=== PATIENT | female | born 1955 | race African-American/Black ===

== ENCOUNTER 2017-09-22 09:53 | Inpatient (IN) | payer OTHER ==
[2017-09-22 10:23] LABS: #Lymphocytes 0.8 thou/uL (1.20-3.40); #Monocytes 0.4 thou/uL (0.11-0.59); #Neutrophils 4.5 thou/uL (1.40-6.50); %Basophils 0.4 % (0.0-1.0); %Eosinophils 0.5 % (0.0-10.0); %Lymphocytes 14.4 % (21.0-51.0); %Monocytes 6.5 % (0.0-10.0); %Neutrophils 78.2 % (42.0-75.0); Hemoglobin 15.1 g/dL (12.0-16.0); Mean Corpuscular HGB CONC 31.7 g/dL (32.0-36.0); Mean Corpuscular Hemoglobin 28.7 pg (27.0-31.0); Mean Corpuscular Volume 90.3 fl (81.0-99.0); Mean Platelet Volume 7.5 fL (7.4-10.4); Platelet Count 237 thou/uL (130-400); RBC Distribution Width 13.3 % (11.5-14.5); Red Blood Cell (RBC) Count 5.26 mill/uL (4.20-5.40); White Blood Cell (WBC) Count 5.7 thou/uL (4.8-10.8)
[2017-09-22 10:35] LABS: Prothrombin Time 12.9 SEC (12.0-14.7)
[2017-09-22 10:39] LABS: PTT 29.3 SEC (22.9-36.1)
[2017-09-22 10:49] LABS: ALT (SGPT) 10 U/L (8-55); AST (SGOT) 13 U/L (5-34); Albumin 3.8 g/dL (3.4-4.8); Alkaline Phosphatase 104 U/L (40-150); Anion Gap 13 mmol/L (10-20); BUN (Urea Nitrogen) 6 mg/dL (9.8-20.1); Bilirubin, Total 0.4 mg/dL (0.2-1.2); CK (CPK) 116 U/L (29-168); Calc. Creatinine Clearance 0 mL/min (70-130); Calcium 9.4 mg/dL (7.8-10.44); Carbon Dioxide 29 mmol/L (23-31); Chloride 103 mmol/L (98-107); Estimated GFR-MDRD Greater than 90; Globulin 3.6 g/dL (2.4-3.5); Glucose 142 mg/dL (80-115); Potassium 3.4 mmol/L (3.5-5.1); Protein, Total 7.4 g/dL (6.0-8.3); Sodium 142 mmol/L (136-145)
[2017-09-22 11:15] LABS: CKMB 3.7 ng/mL (0-6.6)
[2017-09-22] MEDS ORDERED: Nitroglycerin 0.4 MG TAB (25 Tab Bottle) ONE (11:30)
--- NOTE | 2017-09-22 11:34 | RAD ---
PORTABLE CHEST: HISTORY: COPD. Shortness of breath since yesterday. COMPARISON: A 11/04/10 and a 02/12/16 exam. FINDINGS: Heart size is enlarged. Hilar regions are prominent which appears to be on the basis of enlarged pul monary arteries similar in appearance to the previous exam. No definitive infiltrative process. IMPRESSION: Cardiomegaly with prominent hilar regions which I believe are related to prominent pulmonary arteries suggesting an element of pulmonary artery hypertension. POS: [facility]
[2017-09-22] MEDS ORDERED: Enoxaparin Sodium 100 MG/ML SYRINGE ONE (12:05)
[2017-09-22] MEDS ORDERED: Acetaminophen 325 MG TAB PO PRN (13:09)
[2017-09-22 13:25] VITALS: BMI 38.0
[2017-09-22] MEDS ORDERED: Aspirin 325 MG TAB PO SCH (14:00)
[2017-09-22 15:02] LABS: Troponin I 12.991 ng/mL (< 0.028)
[2017-09-22] MEDS ORDERED: Morphine 4 MG/ML VIAL SLOW IVP PRN (15:41)
[2017-09-22] MEDS ORDERED: hydrALAZINE 20 MG/ML VIAL SLOW IVP PRN (15:41)
[2017-09-22] MEDS ORDERED: Ondansetron ODT 4 MG TAB PO PRN (15:41)
[2017-09-22] MEDS ORDERED: cloNIDine 0.1 MG TAB PO PRN (15:41)
[2017-09-22] MEDS ORDERED: Ondansetron HCl/PF 4 MG/2 ML Vial IVP PRN (15:41)
[2017-09-22] MEDS ORDERED: Nitroglycerin 0.4 MG TAB (25 Tab Bottle) SL PRN (15:41)
[2017-09-22] MEDS ORDERED: Furosemide 20 MG/2 ML VIAL SLOW IVP SCH (16:30)
[2017-09-22] MEDS: Acetaminophen 500 MG TAB PO PRN (16:34)
[2017-09-22 17:44] LABS: Troponin I 17.167 ng/mL (< 0.028)
--- NOTE | 2017-09-22 17:53 | HP ---
DATE OF ADMISSION: 09/22/2017 PRIMARY CARE PROVIDER: Jadyn Mcgee D.O. PRIMARY PRESCHOOL ASSISTANT PRINCIPAL: Grace Bailey M.D. CHIEF COMPLAINT: Chest pain and shortness of breath. HISTORY OF PRESENT ILLNESS: This is a 62-year-old -Maltese female who presents to [facility] complaining of increasing shortness of breath, orthopnea as well as chest luan n and cramping, which woke her from sleep approximately 6:00 a.m. on 09/22/2017. The patient had not iced increasing shortness of breath in the context of known chronic obstructive pulmonary disease on chronic oxygen supplementation, mainly nocturnally. The patient had noticed increased work of breath ing in the last 24 hours, worsening in the last 12 hours. The patient describes central anterior lna st wall cramping and pressure, at which point she sat up out of bed, leaning forward to catch her cheli ath. The patient states she has never had a pain like this in the past and denies any prior history of myocardial infarction. The patient does admit she has a history of COPD and congestive heart fail ure, but denies any change to her chronic medication regimen. The patient states she stopped taking aspirin 81 mg daily, approximately 1 year ago after she ran out of the medication. The patient denie s any fever, chills, sick contact exposure history or recent travel. The patient denies any unilater al lower extremity swelling. The patient does not admit to some muscle cramping, but attributes this to her chronic Lasix therapy. In the emergency room, the patient underwent general evaluation inclu ding screening metabolic survey showing mildly elevated troponin I of 0.030. The patient received ni troglycerin sublingually as well as 324 mg of aspirin. The patient also received Lovenox 1 mg/kg sub cutaneously x1 dose. Chest imaging was performed showing pulmonary vascular prominence. The patient was transferred to the observation unit for further evaluation. PAST MEDICAL HISTORY: 1. Chronic hypoxemic respiratory failure on chronic oxygen supplementation by nasal cannula. 2. Hypertension. 3. Hypothyroidism. 4. Hyperlipidemia. 5. History of CVA with residual left-sided weakness. 6. Questionable history of congestive heart failure. PAST SURGICAL HISTORY: 1. Status post hysterectomy. 2. Status post thyroidectomy. CURRENT MEDICATIONS: 1. ProAir HFA 1 puff inhaled b.i.d. 2. Allopurinol 200 mg p.o. daily. 3. Lipitor 20 mg p.o. at bedtime. 4. Wellbutrin SR 150 mg p.o. b.i.d. 5. Lasix 40 mg p.o. b.i.d. 6. Bevespi Aerosphere inhaler 1 puff inhaled b.i.d. 7. Hydralazine 10 mg p.o. t.i.d. 8. Cetirizine 5 mg p.o. at bedtime. 9. Levothyroxine 100 mcg one tab p.o. daily. 10. Lisinopril 40 mg p.o. daily. 11. Bystolic 10 mg p.o. daily. 12. Nifedipine ER 60 mg p.o. daily. 13. Potassium chloride 20 mEq p.o. daily. ALLERGIES: No known drug allergies. FAMILY HISTORY: Mother at the age of 56 after complications of breast cancer and diabetes. Fat her in his 60s secondary to complications of pancreatic cancer. SOCIAL HISTORY: The patient resides in [place], [place]. Accompanied by her niece. Has one daughter living in the [place], [place] area. Smokes up to a pack of cigarettes daily. No alcohol or illicit dr ug use. Ambulates with the use of a rolling walker. REVIEW OF SYSTEMS: The following complete review of systems was negative, unless otherwise mentioned in the HPI or below: Constitutional: Weight loss or gain, ability to conduct usual activities. Sk in: Rash, itching. Eyes: Double vision, pain. ENT/Mouth: Nose bleeding, neck stiffness, pain, te nderness. Cardiovascular: Palpitations, dyspnea on exertion, orthopnea. Respiratory: Shortness of breath, wheezing, cough, hemoptysis, fever or night sweats. Gastrointestinal: Poor appetite, abdom inal pain, heartburn, nausea, vomiting, constipation, or diarrhea. Genitourinary: Urgency, frequenc y, dysuria, nocturia. Musculoskeletal: Pain, swelling. Neurologic/Psychiatric: Anxiety, depressio n. Allergy/Immunologic: Skin rash, bleeding tendency. Otherwise negative except as stated per HPI. PHYSICAL EXAMINATION: VITAL SIGNS: On admission, blood pressure 188/91, pulse 82, respiratory rate 22, temperature 98 degr ees Fahrenheit, O2 saturation 98% on 3 liters per minute by nasal cannula. GENERAL APPEARANCE: This is a 62-year-old -Maltese female, alert and oriented x3, pleasant, responsive, in no acute distress. HEENT: Pupils are equal, round, and reactive to light and accommodation. Extraocular muscles are in tact. No scleral icterus, no conjunctival injection. Nares patent. OP is clear. Teeth in fair rep air. NECK: Supple, no cervical adenopathy, no thyromegaly, no carotid bruits, no JVD appreciated. Cervic al spine with full active and passive range of motion. No meningeal signs appreciated. CHEST: Diminished breath sounds in the bases bilaterally with scattered bibasilar crackles. CARDIOVASCULAR: S1, S2 with distant heart sounds. No murmur, rub or gallop appreciated. No reprodu cible chest tenderness. ABDOMEN: Obese, soft, nontender, nondistended. Bowel sounds are positive in all four quadrants. Th ere is no hepatosplenomegaly, no abdominal bruits, no rebound or guarding appreciated. EXTREMITIES: Warm and dry with fair turgor. No clubbing, cyanosis or asymmetric edema appreciated. Pulses palpable distally at the dorsalis pedis, posterior tibial, and popliteal arteries bilaterally . Capillary refill less than 2 seconds. NEUROLOGIC: Cranial nerves II-XII are grossly intact. No focal or lateralizing signs appreciated. The patient not observed ambulatory during this exam. PERTINENT LABORATORY AND X-RAY FINDINGS: Sodium 142, potassium 3.4, chloride 103, CO2 of 29, BUN 6, creatinine 0.69, estimated GFR greater than 90, glucose 142, calcium 9.4. LFTs within normal limits. Troponin I ranged between 0.030-12.99. BNP 640, previously noted 216 on 12/27/2012. CBC showed a white blood cell count of 5.7, hemoglobin 15, hematocrit 48, platelet count 237 with 78% neutrophils. PT 12.9, INR 1.0, PTT 29.3. Portable chest x-ray dated 09/22/2017 showed cardiomegaly with bilater al hilar prominence. EKG dated 09/22/2017 by my interpretation shows sinus mechanism with heart rate s in the 70s. Attenuated R waves noted in the precordial leads. Left bundle branch block pattern no nicole. No change when compared with prior EKG in 2012. No acute ST-T wave changes appreciated. ASSESSMENT AND PLAN: 1. Non-ST elevation myocardial infarction. The patient will be admitted to the telemetry unit. We will continue aspirin 325 mg daily. Consult Cardiology Service for left heart catheterization and ev aluation of coronary anatomy. Continue Lovenox 1 mg/kg subcutaneously q.12 hours. Continue Lipitor 40 mg p.o. at bedtime. Nitroglycerin p.r.n. Check fasting lipid profile in the a.m. Check 2D trans thoracic echocardiogram in the a.m. 2. Chronic hypoxemic respiratory failure. We will continue oxygen supplementation at 3 liters per m inute by nasal cannula. Continue albuterol sulfate 1 puff inhaled b.i.d. DuoNebs p.r.n. 3. Congestive heart failure. Suspect secondarily to #1. Check 2D transthoracic echocardiogram for ejection fraction and evaluation. Lasix 20 mg IV x1 dose now. Monitor daily weights and I's and O's . 4. Hypertension. Resume home antihypertensive regimen and monitor clinical response. 5. Hypothyroidism. Continue levothyroxine 100 mcg p.o. daily. 6. Prophylaxis. Sequential compression devices while in bed. Pepcid 20 mg p.o. b.i.d. PT evaluati on for functional assessment. 7. Code status is FULL. Surrogate medical decision maker is patient's daughter.
[2017-09-22] MEDS ORDERED: Clopidogrel Bisulfate 300 MG TAB PO SCH (18:15)
[2017-09-22] MEDS ORDERED: Potassium Chloride 20 MEQ TAB PO SCH (18:30)
[2017-09-22] MEDS ORDERED: Spironolactone 25 MG TAB PO SCH (18:30)
[2017-09-22] MEDS: PROVENTIL INHALER 6.7 G (200 INHALATIONS) INH SCH (18:53)
[2017-09-22] MEDS: hydrALAZINE 10 MG TAB PO SCH (20:50)
[2017-09-22] MEDS: Atorvastatin Calcium 40 MG TAB PO SCH (20:50)
[2017-09-22] MEDS: Famotidine 20 MG TAB PO SCH (20:50)
[2017-09-22] MEDS: Bupropion 150 MG SR TAB PO SCH (20:50)
[2017-09-22] MEDS: Enoxaparin Sodium 100 MG/ML SYRINGE SC SCH (20:51)
[2017-09-22] MEDS ORDERED: Loratadine 10 MG TAB PO PRN (21:00)
--- NOTE | 2017-09-22 21:55 | PDOC.EVN ---
Event Note - Event Note Event Note: called by nsg re pt concerns for cough and insomnia added robitussin prn since pt rec'd dose of IV morphine, will hold off on restarting pt requested ambien for time being
[2017-09-22] MEDS: Diabetic Tussin 200 MG/10 ML UDCUP PO PRN (22:02)
--- NOTE | 2017-09-23 01:41 | CON ---
DATE OF CONSULTATION: 09/22/2017 REASON FOR CONSULTATION: Myocardial infarction. HISTORY OF PRESENT ILLNESS: Ms. April Mcgee is a 62-year-old woman. She has a long history of hy pertension, previous stroke, left bundle branch block and smoking. The patient states she was feeling okay until earlier this morning she had the onset of a "cramp" fee ling in her chest. This sensation was severe and they brought her to the emergency room. She also n oted that her breathing was not good. She also has known COPD and is on chronic oxygen. The patient 's pain was in the middle of her chest, cramping pressure sensation. The patient did have an increased troponin level as will be outlined below. She received Lovenox. PAST MEDICAL HISTORY: 1. Chronic hypoxemic respiratory failure with COPD and continued smoking. 2. Hypertension. 3. Hypothyroidism. 4. Hyperlipidemia. 5. History of stroke with residual left-sided weakness. 6. Chronic left bundle branch block. PAST SURGICAL HISTORY: Previous hysterectomy. MEDICATIONS: 1. ProAir. 2. Allopurinol. 3. Lipitor. 4. Wellbutrin. 5. Lasix. 6. Hydralazine 10 mg 3 times a day. 7. Lisinopril 40 mg 8. Diastolic. 9. Nifedipine. 10. Potassium. ALLERGIES: None known. FAMILY HISTORY: Mother at age 56 of breast cancer. SOCIAL HISTORY: She lives in [place]. She has family with her. She smokes at least a pack of ciga rettes per day per family. No alcohol or drugs. She ambulates short distances. She has a walker. REVIEW OF SYSTEMS: Constitutional: Positive for weakness, fatigue. Vision: No changes. Hearing: No changes. Pulmonary: Positive for shortness of breath. Cardiac: Positive for chest pain and sh ortness of breath. Gastrointestinal: No nausea, vomiting, diarrhea. Skin: No rashes. Neurologic: No unilateral weakness or numbness. Psychiatric: No unusual depression or anxiety. Hematologic: No unusual bruising. Genitourinary: No burning with urination. PHYSICAL EXAMINATION: GENERAL: It is a 62-year-old woman. She does look older than her chronologic age. VITAL SIGNS: She is 5 foot 5 inches tall, 228 pounds. EYES: Sclerae nonicteric. MOUTH: Mucous membranes moist. NECK: Supple, no lymphadenopathy. LUNGS: Clear anteriorly and laterally. CARDIOVASCULAR: Normal S1, normal S2. I do not hear murmur, rub or gallop. ABDOMEN: Obese, nontender, no hepatosplenomegaly. EXTREMITIES: Warm, dry, no clubbing or cyanosis. There is no edema. Peripheral pulses are diminish ed, but I do not feel pedal pulses, dorsalis pedis on the right. It is hard to feel the femoral puls es, but she can lay flat. LABORATORY AND X-RAY FINDINGS: Chest x-ray shows cardiomegaly with very prominent pulmonary vasculat ure. Troponin level peaked at 17.1. Left bundle branch block on EKG. Potassium was 3.4. ASSESSMENT: 1. Chronic left bundle branch block. 2. Myocardial infarction, likely non-ST elevation infarction. 3. Chronic obstructive pulmonary disease. 4. Continued smoking. 5. Previous stroke. 6. Hypertension. 7. Likely has some degree of peripheral vascular disease. 8. Hypercholesterolemia, on medicines. PLAN: 1. Continue Lovenox. 2. Echocardiogram. 3. Give her Lasix. 4. Echocardiogram to see if she has systolic or diastolic heart failure. 5. Ultimately cardiac catheterization. If she is unable to lay flat, told the patient need to be un elina anesthesia and likely a ventilator during the procedure. The patient is unsure whether she wishe s to pursue that at this time. She understands it is critically important not to smoke. Prognosis g uarded with these multiple problems. 6. The patient will be an extremely poor candidate for surgery with all her multiple medical problem s.
[2017-09-23] MEDS: Levothyroxine Sodium 100 MCG TAB PO SCH (05:08)
[2017-09-23 06:05] LABS: Anion Gap 13 mmol/L (10-20); BUN (Urea Nitrogen) 6 mg/dL (9.8-20.1); Calc. Creatinine Clearance 121 mL/min (70-130); Calcium 8.6 mg/dL (7.8-10.44); Carbon Dioxide 30 mmol/L (23-31); Cardiac Risk 4.1 (Less than 4.5); Chloride 101 mmol/L (98-107); Cholesterol 184 mg/dl (< 200 Desired); Estimated GFR-MDRD 90; Glucose 117 mg/dL (80-115); HDL Cholesterol 45 mg/dL (>60 Neg Risk); LDL Cholesterol, Calculated 119 mg/dL; Potassium 3.3 mmol/L (3.5-5.1); Triglycerides 99 mg/dL (Less than 150)
[2017-09-23 06:10] LABS: Band 1 % (5-11); Hemoglobin 13.6 g/dL (12.0-16.0); Lymphocytes 38 % (21-51); MDiff Complete? YES; Mean Corpuscular HGB CONC 32.9 g/dL (32.0-36.0); Mean Corpuscular Hemoglobin 29.4 pg (27.0-31.0); Mean Corpuscular Volume 89.4 fl (81.0-99.0); Mean Platelet Volume 7.6 fL (7.4-10.4); Monocytes 9 % (0-10); Neutrophil 52 % (42-75); Platelet Count 217 thou/uL (130-400); RBC Distribution Width 13.6 % (11.5-14.5); Red Blood Cell (RBC) Count 4.63 mill/uL (4.20-5.40); White Blood Cell (WBC) Count 6.2 thou/uL (4.8-10.8)
[2017-09-23 06:21] LABS: Sodium 141 mmol/L (136-145)
[2017-09-23] MEDS: PROVENTIL INHALER 6.7 G (200 INHALATIONS) INH SCH ×2 (07:37→19:06)
[2017-09-23] MEDS: Nebivolol HCl 5 MG TAB PO SCH (08:22)
[2017-09-23] MEDS: NIFEdipine XL 60 MG TAB PO SCH (08:22)
[2017-09-23] MEDS: Allopurinol 100 MG TAB PO SCH (08:23)
[2017-09-23] MEDS: Bupropion 150 MG SR TAB PO SCH ×2 (08:23→20:43)
[2017-09-23] MEDS: Lisinopril 20 MG TAB PO SCH (08:23)
[2017-09-23] MEDS: Famotidine 20 MG TAB PO SCH ×2 (08:23→20:44)
[2017-09-23] MEDS: Spironolactone 25 MG TAB PO SCH (08:24)
[2017-09-23] MEDS: Potassium Chloride 20 MEQ TAB PO SCH ×2 (08:24→17:26)
[2017-09-23] MEDS: Aspirin 325 MG TAB PO SCH (08:24)
[2017-09-23] MEDS: Enoxaparin Sodium 100 MG/ML SYRINGE SC SCH ×2 (08:25→20:45)
[2017-09-23] MEDS: Clopidogrel Bisulfate 75 MG TAB PO SCH (08:25)
[2017-09-23] MEDS: Furosemide 20 MG/2 ML VIAL SLOW IVP SCH (08:25)
[2017-09-23] MEDS: hydrALAZINE 10 MG TAB PO SCH ×3 (08:25→20:44)
[2017-09-23] MEDS ORDERED: Potassium Chloride 20 MEQ TAB PO SCH (09:00)
[2017-09-23] MEDS ORDERED: Magnesium 2 GM/NS 0.9% 100 ML 2 GM in Premix Bag 1 BAG IVPB SCH (10:00)
[2017-09-23] MEDS: Diabetic Tussin 200 MG/10 ML UDCUP PO PRN ×2 (10:43→20:54)
--- NOTE | 2017-09-23 12:54 | PDOC.CTH ---
Cardiology Progress Note - Subjective Patient awake, no overnight events. No cardiac events. Denies chest pain, pressure, or heaviness. Continues to experience dyspnea with mild exertion. Echocardiogram recently completed. Feels like her strength is improving. Chronic oxygen usage at home. Complains of chronic pain to both legs, left greater than right. - ROS shortness of breath - Objective Vital Signs Temp Pulse Resp BP Pulse Ox 09/23/17 10:40 98.3 F 79 16 133/86 96 09/23/17 08:25 88 09/23/17 08:22 88 09/23/17 08:13 98.3 F 79 16 142/83 H 95 09/23/17 07:34 97 09/23/17 07:30 82 24 H 97 09/23/17 05:09 98.4 F 84 16 134/92 H 96 Weight 227 lb 11.2 oz 09/22/17 09/23/17 09/24/17 06:59 06:59 06:59 Intake Total 960 Output Total 500 Balance 460 - Physical Examination General/Neuro: alert & oriented x3, NAD Neck: no JVD present Lungs: unlabored respirations, other: (Coarse throughout) Heart: RRR Abdomen: NT/ND - Telemetry Telemetry Rhythm: SR, L BBB - Labs Result Diagrams: 09/23/17 05:20 09/23/17 05:20 Troponin/CKMB CK-MB (CK-2) 3.7 ng/mL (0-6.6) 09/22/17 10:09 Troponin I 17.167 ng/mL (< 0.028) H* 09/22/17 16:59 - Assessment/Plan 1.NSTEMI-chest pain free. Max trop 17.1, continue enoxaparin 1mg/kg, plan for LHC when more stable. Echo revealed tip of apex & distal inf wall akinetic, thin , ? old infarct 2.Acute on chronic diastolic HF-echo today revealed EF 55-60%. BNP 640, cont gentle diuresis 3.L BBB 4.PVD-on clopidogrel 5.HTN-stable, echo revealed severe LVH, titrate antihypertensives as needed. 6.Hx: [id number] residual weakness 7.Hypokalemia-3.3 this am, continue supplementary K+, cont spironolactone
[2017-09-23] MEDS ORDERED: guaiFENesin ER 600 MG TAB PO SCH (15:15)
--- NOTE | 2017-09-23 16:06 | PRG ---
DATE OF SERVICE: 09/23/2017 SUBJECTIVE: Ms. Mcgee is doing somewhat better today. She is not having chest pain. Her breathin g is better. She complains she can only lay down to about a 75-25-ybbgzh angle, which is better than yesterday. OBJECTIVE: VITAL SIGNS: Her blood pressure 133/86 and pulse 80. LUNGS: Clear. CARDIAC: Normal S1 and S2. ABDOMEN: Soft and nontender. EXTREMITIES: Peripheral pulses, I do not feel pedal pulses on the left. On the right, I do feel a d orsalis pedis pulse. I do not feel a femoral pulse, but it may just be very deep and she is guarded. She does not like to be palpated in that area. IMAGING: Echocardiogram revealed ejection fraction of 55%-60%. The tip of the apex and distal infer ior wall are akinetic and some of that been may be old. The patient does have left ventricular hypertrophy. ASSESSMENT: 1. Status post non-ST elevation myocardial infarction. 2. Coronary artery disease. 3. Peripheral vascular disease. 4. Hypertension with left ventricular hypertrophy. 5. Chronic obstructive pulmonary disease. 6. Smoking, she quit 2 days ago. 7. Previous stroke. 8. Overall health is not good. PLAN: 1. Continue the current medical regimen including diuretics. She also has diastolic heart failure. 2. Consideration for cardiac catheterization, may be best to try to do a radial catheterization. We will discuss that with Dr. Gorman. The patient is improving with medical therapy. Long-term progno sis in this patient is borderline to questionable in view of the multiple problems, and the family is aware of this.
[2017-09-23] MEDS ORDERED: Cepastat Lozenges 1 LOZ PO PRN (19:47)
[2017-09-23] MEDS: guaiFENesin ER 600 MG TAB PO SCH (20:43)
[2017-09-23] MEDS: Atorvastatin Calcium 40 MG TAB PO SCH (20:44)
[2017-09-23] MEDS: Senokot S 8.6-50 MG TAB PO SCH (20:46)
--- NOTE | 2017-09-23 22:29 | PDOC.PN ---
- Subjective Encounter Start Date: 09/23/17 Encounter Start Time: 19:30 Patient seen and examined for CHF/NSTEMI. Cough +. No CP. SOB improving No overnight events - Objective MAR Reviewed: Yes Vital Signs & Weight: Vital Signs (12 hours) Temp Pulse Pulse Pulse Resp BP BP 09/23/17 20:44 75 134/77 09/23/17 19:09 09/23/17 19:08 09/23/17 17:46 74 09/23/17 16:18 71 72 148/88 H 09/23/17 15:26 97.8 F 77 18 09/23/17 15:25 72 134/79 09/23/17 13:18 72 16 09/23/17 10:40 98.3 F 79 16 BP BP Pulse Ox Pulse Ox Pulse Ox 09/23/17 20:44 09/23/17 19:09 97 09/23/17 19:08 97 09/23/17 17:46 133/81 09/23/17 16:18 139/86 95 91 L 09/23/17 15:26 134/79 97 09/23/17 15:25 09/23/17 13:18 97 09/23/17 10:40 133/86 96 Weight Weight 227 lb 11.2 oz I&O: 09/22/17 09/23/17 09/24/17 06:59 06:59 06:59 Intake Total 960 Output Total 500 Balance 460 Result Diagrams: 09/24/17 05:16 09/24/17 05:16 EKG Reviewed by me: Yes (Tele SR) Phys Exam - Physical Examination Constitutional: NAD Neck: no JVD Respiratory: no wheezing, no rhonchi Bibasilar rales, Mild accessory muscle use Cardiovascular: RRR, no rub S1S2 +, no heaves/pulsations Gastrointestinal: soft, non-tender, no distention, positive bowel sounds Musculoskeletal: edema present (1+) Neurological: non-focal, normal sensation, moves all 4 limbs Psychiatric: normal affect, A&O x 3 Dx/Plan (1) NSTEMI (non-ST elevated myocardial infarction) Code(s): I21.4 - NON-ST ELEVATION (NSTEMI) MYOCARDIAL INFARCTION Status: Acute (2) Acute diastolic heart failure Code(s): I50.31 - ACUTE DIASTOLIC (CONGESTIVE) HEART FAILURE Status: Acute Plan: Cont diuretics, current HTN meds (3) Chronic respiratory failure with hypoxia Code(s): J96.11 - CHRONIC RESPIRATORY FAILURE WITH HYPOXIA Status: Chronic Plan: Cont home O2 (4) HTN (hypertension) Code(s): I10 - ESSENTIAL (PRIMARY) HYPERTENSION Status: Chronic Plan: Cont Bystolic/Lisinopril/Hydralazine (5) Tobacco dependence Code(s): F17.200 - NICOTINE DEPENDENCE, UNSPECIFIED, UNCOMPLICATED Status: Chronic Plan: Counselled. Comment: Quit 2 days ago (6) LBBB (left bundle branch block) Code(s): I44.7 - LEFT BUNDLE-BRANCH BLOCK, UNSPECIFIED Status: Chronic (7) Obesity (BMI 30-39.9) Code(s): E66.9 - OBESITY, UNSPECIFIED Status: Chronic Plan: Counselled. (8) Hypothyroidism Code(s): E03.9 - HYPOTHYROIDISM, UNSPECIFIED Status: Chronic Plan: Cont Levothyroxine - Plan respiratory therapy, DVT proph w/lovenox, DVT proph w/SCDs Review of Systems - Review of Systems Respiratory: negative: Cough, Dry, Shortness of Breath, Hemoptysis, SOB with Excertion, Pleuritic Pain, Sputum, Wheezing Cardiovascular: negative: chest pain, palpitations, orthopnea, paroxysmal nocturnal dyspnea, edema, light headedness, other - Medications/Allergies Allergies/Adverse Reactions: Allergies Allergy/AdvReac Type Severity Reaction Status Date / Time No Known Allergies Allergy Unverified 09/22/17 13:08 Medications: Current Medications Acetaminophen (Tylenol) 1,000 mg PO Q6H PRN PRN Reason: Headache/Fever or Mild Pain Last Admin: 09/22/17 16:34 Dose: 1,000 mg Albuterol Sulfate (Proventil Hfa) 1 puff INH BID-RT LEN Last Admin: 09/23/17 19:06 Dose: Not Given Albuterol/Ipratropium (Duoneb) 3 ml NEB [id number] LEN Last Admin: 09/23/17 19:08 Dose: 3 ml Albuterol/Ipratropium (Duoneb) 3 ml NEB Q4H PRN PRN Reason: SOB &/or Wheezing Allopurinol (Zyloprim) 200 mg PO DAILY LEN Last Admin: 09/23/17 08:23 Dose: 200 mg Aspirin (Aspirin) 325 mg PO DAILY [facility] Last Admin: 09/23/17 08:24 Dose: 325 mg Atorvastatin Calcium (Lipitor) 40 mg PO QPM [facility] Last Admin: 09/23/17 20:44 Dose: 40 mg Budesonide (Pulmicort Neb Solution) 0.5 mg INH BID-RT [facility] Bupropion HCl (Wellbutrin Sr) 150 mg PO BID [facility] Last Admin: 09/23/17 20:43 Dose: 150 mg Clonidine (Catapres) 0.1 mg PO Q4H PRN PRN Reason: Systolic BP > 180 Clopidogrel Bisulfate (Plavix) 75 mg PO DAILY [facility] Last Admin: 09/23/17 08:25 Dose: 75 mg Enoxaparin Sodium (Lovenox) 100 mg SC 0900,2100 [facility] Last Admin: 09/23/17 20:45 Dose: 100 mg Famotidine (Pepcid) 20 mg PO BID [facility] Last Admin: 09/23/17 20:44 Dose: 20 mg Furosemide (Lasix) 20 mg SLOW IVP DAILY [facility] Last Admin: 09/23/17 08:25 Dose: 20 mg Guaifenesin (Mucinex) 600 mg PO Q12HR [facility] Last Admin: 09/23/17 20:43 Dose: 600 mg Guaifenesin (Robitussin Sf) 200 mg PO Q4H PRN PRN Reason: Cough Last Admin: 09/23/17 20:54 Dose: 200 mg Hydralazine HCl (Apresoline) 10 mg SLOW IVP Q4H PRN PRN Reason: Systolic BP > 180 Hydralazine HCl (Apresoline) 10 mg PO TID [facility] Last Admin: 09/23/17 20:44 Dose: 10 mg Levothyroxine Sodium (Synthroid) 100 mcg PO 0600 [facility] Last Admin: 09/23/17 05:08 Dose: 100 mcg Lisinopril (Zestril) 40 mg PO DAILY [facility] Last Admin: 09/23/17 08:23 Dose: 40 mg Loratadine (Claritin) 10 mg PO HS PRN PRN Reason: ALLERGIES Morphine Sulfate (Morphine) 2 mg SLOW IVP Q5MIN PRN PRN Reason: Chest Pain Last Admin: 09/22/17 23:43 Dose: 2 mg Nebivolol (Bystolic) 10 mg PO DAILY [facility] Last Admin: 09/23/17 08:22 Dose: 10 mg Nifedipine (Procardia Xl) 60 mg PO DAILY [facility] Last Admin: 09/23/17 08:22 Dose: 60 mg Nitroglycerin (Nitrostat) 0.4 mg SL Q5MIN PRN PRN Reason: Chest Pain Ondansetron HCl (Zofran Odt) 4 mg PO Q6H PRN PRN Reason: Nausea/Vomiting Ondansetron HCl (Zofran) 4 mg IVP Q6H PRN PRN Reason: Nausea/Vomiting Potassium [facility] ([facility]) [facility] Last Admin: 09/23/17 17:26 Dose: 20 meq Senna/Docusate Sodium (Senokot S) 1 tab PO BID [facility] Last Admin: 09/23/17 20:46 Dose: 1 tab Spironolactone (Ald[facility]one) [facility] Last Admin: 09/23/17 08:24 Dose: 25 mg Throat Lozenges (Cepastat Lozenges) 1 prasanna PO Q2H PRN PRN Reason: Sore Throat
[2017-09-23] MEDS: Acetaminophen 500 MG TAB PO PRN (23:36)
[2017-09-24] MEDS: Diabetic Tussin 200 MG/10 ML UDCUP PO PRN ×2 (01:34→10:39)
[2017-09-24] MEDS: Levothyroxine Sodium 100 MCG TAB PO SCH (05:33)
[2017-09-24 05:59] LABS: #Eosinphils 0.1 thou/uL (0.0-0.7); #Lymphocytes 1.3 thou/uL (1.20-3.40); #Monocytes 0.5 thou/uL (0.11-0.59); #Neutrophils 4.3 thou/uL (1.40-6.50); %Basophils 0.2 % (0.0-1.0); %Eosinophils 1.2 % (0.0-10.0); %Lymphocytes 20.8 % (21.0-51.0); %Monocytes 8.7 % (0.0-10.0); %Neutrophils 69.2 % (42.0-75.0); Hemoglobin 14.1 g/dL (12.0-16.0); Mean Corpuscular HGB CONC 32.4 g/dL (32.0-36.0); Mean Corpuscular Hemoglobin 29.1 pg (27.0-31.0); Mean Corpuscular Volume 89.9 fl (81.0-99.0); Mean Platelet Volume 7.5 fL (7.4-10.4); Platelet Count 222 thou/uL (130-400); RBC Distribution Width 13.3 % (11.5-14.5); Red Blood Cell (RBC) Count 4.86 mill/uL (4.20-5.40); White Blood Cell (WBC) Count 6.2 thou/uL (4.8-10.8)
[2017-09-24 06:15] LABS: Albumin 3.5 g/dL (3.4-4.8); Anion Gap 9 mmol/L (10-20); BUN (Urea Nitrogen) 6 mg/dL (9.8-20.1); BUN/Creatinine Ratio 8.11; Calc. Creatinine Clearance 127 mL/min (70-130); Calcium 8.8 mg/dL (7.8-10.44); Carbon Dioxide 33 mmol/L (23-31); Chloride 100 mmol/L (98-107); Estimated GFR-MDRD Greater than 90; Glucose 115 mg/dL (80-115); Magnesium 1.9 mg/dL (1.6-2.6); Phosphorus 3.5 mg/dL (2.3-4.7); Potassium 3.4 mmol/L (3.5-5.1)
[2017-09-24 06:32] LABS: Sodium 139 mmol/L (136-145)
[2017-09-24] MEDS: PROVENTIL INHALER 6.7 G (200 INHALATIONS) INH SCH ×2 (07:23→18:24)
[2017-09-24] MEDS: Budesonide 0.5 MG/2 ML NEB INH SCH ×2 (07:25→18:23)
[2017-09-24] MEDS: Furosemide 20 MG/2 ML VIAL SLOW IVP SCH (08:35)
[2017-09-24] MEDS: Allopurinol 100 MG TAB PO SCH (08:35)
[2017-09-24] MEDS: Potassium Chloride 20 MEQ TAB PO SCH ×2 (08:35→16:32)
[2017-09-24] MEDS: Spironolactone 25 MG TAB PO SCH (08:35)
[2017-09-24] MEDS: Clopidogrel Bisulfate 75 MG TAB PO SCH (08:36)
[2017-09-24] MEDS: Famotidine 20 MG TAB PO SCH ×2 (08:36→21:08)
[2017-09-24] MEDS: Aspirin 325 MG TAB PO SCH (08:36)
[2017-09-24] MEDS: Enoxaparin Sodium 100 MG/ML SYRINGE SC SCH (08:36)
[2017-09-24] MEDS: Bupropion 150 MG SR TAB PO SCH ×2 (08:36→21:08)
[2017-09-24] MEDS: guaiFENesin ER 600 MG TAB PO SCH ×2 (08:37→21:08)
[2017-09-24] MEDS: NIFEdipine XL 60 MG TAB PO SCH (08:37)
[2017-09-24] MEDS: Nebivolol HCl 5 MG TAB PO SCH (08:37)
[2017-09-24] MEDS: Lisinopril 20 MG TAB PO SCH (08:37)
[2017-09-24] MEDS: Senokot S 8.6-50 MG TAB PO SCH ×2 (08:38→21:08)
[2017-09-24] MEDS: hydrALAZINE 10 MG TAB PO SCH ×3 (08:38→21:08)
--- NOTE | 2017-09-24 11:56 | PDOC.CTH ---
Cardiology Progress Note - Subjective Awake, lying in bed, watching television. Denies any recurrence of chest pain, has some dyspnea with exertion, getting out of bed to bedside commode. [place] nauseated this morning, has since resolved. Home oxygen dependent, wearing 3L now. No overnight events, no cardiac events. - Objective Vital Signs Temp Pulse Resp BP Pulse Ox 09/24/17 10:40 98.7 F 74 19 141/87 H 94 L 09/24/17 08:38 82 09/24/17 08:37 82 09/24/17 08:32 98.4 F 82 18 135/89 93 L 09/24/17 07:27 86 16 99 09/24/17 07:25 86 18 99 09/24/17 05:18 98.3 F 81 20 153/87 H 97 09/24/17 00:09 96 Weight 225 lb 4.8 oz 09/23/17 09/24/17 09/25/17 06:59 06:59 06:59 Intake Total 960 400 Output Total 500 1100 Balance 460 -700 - Physical Examination General/Neuro: alert & oriented x3, NAD Neck: no JVD present Lungs: unlabored respirations Heart: RRR Abdomen: NT/ND - Telemetry Telemetry Rhythm: SR , LBBB - Labs Result Diagrams: 09/24/17 05:16 09/24/17 05:16 Troponin/CKMB CK-MB (CK-2) 3.7 ng/mL (0-6.6) 09/22/17 10:09 Troponin I 17.167 ng/mL (< 0.028) H* 09/22/17 16:59 - Assessment/Plan 1.NSTEMI-chest pain free. Max trop 17.1, continue enoxaparin 1mg/kg, plan for LHC when more stable. Echo revealed tip of apex & distal inf wall akinetic, thin , ? old infarct. Consideration for LHC, would be good candidate for radial access. Cont ASA, statin. 2.Acute on chronic diastolic HF-echo today revealed EF 55-60%. BNP 640, cont gentle diuresis, cont ACEi, BB 3.COPD-continue pulm toilet. Home oxygen dependent. 4.L BBB 5.PVD-on clopidogrel 6.HTN-stable, echo revealed severe LVH, titrate antihypertensives as needed. 7.Hx: [id number] residual weakness 8.Hypokalemia-3.4, improving, continue supplementary K+, cont spironolactone
[2017-09-24] MEDS ORDERED: Potassium Chloride 20 MEQ TAB PO SCH (12:00)
[2017-09-24] MEDS: guaiFENesin/Codeine Phosphate 200 mg/20 mg 10 ml UD Cup PO PRN ×2 (14:17→21:10)
[2017-09-24] MEDS ORDERED: Communication Order-Pharmacy FS SCH (15:30)
--- NOTE | 2017-09-24 16:09 | PRG ---
DATE OF SERVICE: 09/24/2017 SUBJECTIVE: Ms. Mcgee is doing well. She is breathing better. No chest pain. OBJECTIVE: VITAL SIGNS: Her blood pressure was 140/87 followed by 119/81, pulse 90. LUNGS: Clear. CARDIAC: Normal S1 and S2. ASSESSMENT: 1. [id number] myocardial infarction. 2. I think she has peripheral vascular disease. 3. Hypertension. 4. Long history of smoking. She has not smoked since last week. 5. Peripheral vascular disease. 6. Chronic obstructive pulmonary disease, very difficult time lying flat very long. PLAN: We discussed cardiac catheterization. I think it would likely be better from a radial approac h. We will ask Dr. Gorman if he could see her. Discussed risks of the procedure, stroke, heart rosana ck, iodine allergy, interfering of blood supply to the leg or arm, stent thrombosis, stent restenosis . She understands and wishes to proceed.
[2017-09-24] MEDS: Acetaminophen 500 MG TAB PO PRN (16:33)
[2017-09-24] MEDS ORDERED: Enoxaparin Sodium 40 MG/0.4 ML SYRINGE SC SCH (21:00)
[2017-09-24] MEDS: Atorvastatin Calcium 40 MG TAB PO SCH (21:08)
--- NOTE | 2017-09-24 23:15 | PDOC.PN ---
- Subjective Encounter Start Date: 09/24/17 Encounter Start Time: 14:30 Patient seen and examined for NSTEMI/CHF. Cough +. No overnight events - Objective MAR Reviewed: Yes Vital Signs & Weight: Vital Signs (12 hours) Temp Pulse Pulse Pulse Resp BP BP 09/24/17 21:08 74 143/79 H 09/24/17 19:56 99.2 F 74 20 09/24/17 18:23 71 18 09/24/17 17:43 83 70 160/100 H 09/24/17 15:46 91 09/24/17 15:10 99.0 F 91 18 09/24/17 14:15 78 18 BP BP Pulse Ox Pulse Ox 09/24/17 21:08 09/24/17 19:56 143/79 H 94 L 09/24/17 18:23 98 09/24/17 17:43 158/98 H 91 L 09/24/17 15:46 09/24/17 15:10 119/81 93 L 09/24/17 14:15 98 Weight Weight 225 lb 4.8 oz I&O: 09/23/17 09/24/17 09/25/17 06:59 06:59 06:59 Intake Total 960 400 Output Total 500 1100 Balance 460 -700 Result Diagrams: 09/24/17 05:16 09/24/17 05:16 EKG Reviewed by me: Yes (Tele SR) Phys Exam - Physical Examination Constitutional: NAD Respiratory: no wheezing, no rhonchi Cardiovascular: RRR, no rub Gastrointestinal: soft, non-tender, positive bowel sounds Musculoskeletal: no edema Neurological: moves all 4 limbs Dx/Plan (1) NSTEMI (non-ST elevated myocardial infarction) Code(s): I21.4 - NON-ST ELEVATION (NSTEMI) MYOCARDIAL INFARCTION Status: Acute (2) Acute diastolic heart failure Code(s): I50.31 - ACUTE DIASTOLIC (CONGESTIVE) HEART FAILURE Status: Acute (3) Chronic respiratory failure with hypoxia Code(s): J96.11 - CHRONIC RESPIRATORY FAILURE WITH HYPOXIA Status: Chronic (4) HTN (hypertension) Code(s): I10 - ESSENTIAL (PRIMARY) HYPERTENSION Status: Chronic (5) Tobacco dependence Code(s): F17.200 - NICOTINE DEPENDENCE, UNSPECIFIED, UNCOMPLICATED Status: Chronic Comment: Quit 2 days ago (6) LBBB (left bundle branch block) Code(s): I44.7 - LEFT BUNDLE-BRANCH BLOCK, UNSPECIFIED Status: Chronic (7) Obesity (BMI 30-39.9) Code(s): E66.9 - OBESITY, UNSPECIFIED Status: Chronic (8) Hypothyroidism Code(s): E03.9 - HYPOTHYROIDISM, UNSPECIFIED Status: Chronic - Plan plan discussed w/ family, DVT proph w/SCDs Cont diuretics, Cath in AM, AM labs, Cont Pot Chloride -: Add Mucinex, Cont Nebs -: Cont other meds as below -: Cont to monitor Review of Systems - Review of Systems Respiratory: Cough, Dry. negative: Shortness of Breath, Hemoptysis, SOB with Excertion, Pleuritic Pain, Sputum, Wheezing Cardiovascular: negative: chest pain, palpitations, orthopnea, paroxysmal nocturnal dyspnea, edema, light headedness, other - Medications/Allergies Allergies/Adverse Reactions: Allergies Allergy/AdvReac Type Severity Reaction Status Date / Time No Known Allergies Allergy Unverified 09/22/17 13:08 Medications: Current Medications Acetaminophen (Tylenol) 1,000 mg PO Q6H PRN PRN Reason: Headache/Fever or Mild Pain Last Admin: 09/24/17 16:33 Dose: 1,000 mg Albuterol Sulfate (Proventil Hfa) 1 puff INH BID-RT LEN Last Admin: 09/24/17 18:24 Dose: Not Given Albuterol/Ipratropium (Duoneb) 3 ml NEB [id number] LEN Last Admin: 09/24/17 18:23 Dose: 3 ml Albuterol/Ipratropium (Duoneb) 3 ml NEB Q4H PRN PRN Reason: SOB &/or Wheezing Allopurinol (Zyloprim) 200 mg PO DAILY L[facility] Last Admin: 09/24/17 08:35 Dose: 200 mg Aspirin (Aspirin) 325 mg PO DAILY LEN Last Admin: 09/24/17 08:36 Dose: 325 mg Atorvastatin Calcium (Lipitor) 40 mg PO QPM LEN Last Admin: 09/24/17 21:08 Dose: 40 mg Budesonide (Pulmicort Neb Solution) 0.5 mg INH BID-RT LEN Last Admin: 09/24/17 18:23 Dose: 0.5 mg Bupropion HCl (Wellbutrin Sr) 150 mg PO BID LEN Last Admin: 09/24/17 21:08 Dose: 150 mg Clonidine (Catapres) 0.1 mg PO Q4H PRN PRN Reason: Systolic BP > 180 Clopidogrel Bisulfate (Plavix) 75 mg PO DAILY [facility] Last Admin: 09/24/17 08:36 Dose: 75 mg Diazepam (Valium) 5 mg PO ONE [facility] Stop: 09/25/17 23:59 Enoxaparin Sodium (Lovenox) 40 mg SC 2100 [facility] Stop: 09/24/17 23:59 Last Admin: 09/24/17 21:08 Dose: 40 mg Famotidine (Pepcid) 20 mg PO BID [facility] Last Admin: 09/24/17 21:08 Dose: 20 mg Furosemide (Lasix) 20 mg SLOW IVP DAILY [facility] Last Admin: 09/24/17 08:35 Dose: 20 mg Guaifenesin (Mucinex) 600 mg PO Q12HR [facility] Last Admin: 09/24/17 21:08 Dose: 600 mg Guaifenesin (Robitussin Sf) 200 mg PO Q4H PRN PRN Reason: Cough Last Admin: 09/24/17 10:39 Dose: 200 mg Guaifenesin/Codeine Phosphate (Robitussin Ac) 5 ml PO Q6H PRN PRN Reason: Cough Last Admin: 09/24/17 21:10 Dose: 5 ml Hydralazine HCl (Apresoline) 10 mg SLOW IVP Q4H PRN PRN Reason: Systolic BP > 180 Hydralazine HCl (Apresoline) 10 mg PO TID [facility] Last Admin: 09/24/17 21:08 Dose: 10 mg Sodium Chloride (Normal Saline 0.9%) 1,000 mls @ 80 mls/hr IV .[id number] [facility] Levothyroxine Sodium (Synthroid) 100 mcg PO 0600 [facility] Last Admin: 09/24/17 05:33 Dose: 100 mcg Lisinopril (Zestril) 40 mg PO DAILY [facility] Last Admin: 09/24/17 08:37 Dose: 40 mg Loratadine (Claritin) 10 mg PO HS PRN PRN Reason: ALLERGIES Miscellaneous Information (Communication Order-Pharmacy) 0 each FS ONE [facility] Stop: 09/24/17 23:59 Nebivolol (Bystolic) 10 mg PO DAILY [facility] Last Admin: 09/24/17 08:37 Dose: 10 mg Nifedipine (Procardia Xl) 60 mg PO DAILY [facility] Last Admin: 09/24/17 08:37 Dose: 60 mg Nitroglycerin (Nitrostat) 0.4 mg SL Q5MIN PRN PRN Reason: Chest Pain Ondansetron HCl (Zofran Odt) 4 mg PO Q6H PRN PRN Reason: Nausea/Vomiting Ondansetron HCl (Zofran) 4 mg IVP Q6H PRN PRN Reason: Nausea/Vomiting Potassium Chloride (K-Dur) 20 meq PO BID-[facility] Last Admin: 09/24/17 16:32 Dose: 20 meq Senna/Docusate Sodium (Senokot S) 1 tab PO BID [facility] Last Admin: 09/24/17 21:08 Dose: 1 tab [facility] ([facility]) [facility] Last Admin: 09/24/17 08:35 Dose: 25 mg Throat Lozenges (Cepastat Lozenges) 1 prasanna PO Q2H PRN PRN Reason: Sore Throat Last Admin: 09/23/17 23:36 Dose: 1 prasanna
[2017-09-25] MEDS: Aspirin 325 MG TAB PO SCH (05:09)
[2017-09-25] MEDS: Allopurinol 100 MG TAB PO SCH (05:09)
[2017-09-25] MEDS: Famotidine 20 MG TAB PO SCH ×2 (05:09→21:33)
[2017-09-25] MEDS: Levothyroxine Sodium 100 MCG TAB PO SCH (05:10)
[2017-09-25] MEDS: NIFEdipine XL 60 MG TAB PO SCH (05:10)
[2017-09-25] MEDS: Clopidogrel Bisulfate 75 MG TAB PO SCH (05:10)
[2017-09-25] MEDS: Bupropion 150 MG SR TAB PO SCH ×2 (05:10→21:30)
[2017-09-25] MEDS: Nebivolol HCl 5 MG TAB PO SCH (05:10)
[2017-09-25] MEDS: hydrALAZINE 10 MG TAB PO SCH ×3 (05:11→21:30)
[2017-09-25] MEDS: Lisinopril 20 MG TAB PO SCH (05:11)
[2017-09-25] MEDS ORDERED: Sodium Chloride 0.9% 1,000 ML IV SCH ×2 (06:00→13:00)
[2017-09-25] MEDS: Potassium Chloride 20 MEQ TAB PO SCH ×2 (06:35→16:57)
[2017-09-25] MEDS ORDERED: Heparin 0 ML ONE (06:57)
[2017-09-25] MEDS ORDERED: Lidocaine 1% (PF) 30 ML VIAL ONE (06:58)
[2017-09-25] MEDS ORDERED: cefTRIAXone\\ROCEPHIN 1 GM, Syringe 0.4 ML in Sterile Water 9.6 ML SLOW IVP SCH (07:00)
[2017-09-25] MEDS ORDERED: cefTRIAXone\\ROCEPHIN 1 GM in Sodium Chloride 0.9% 100 ML IVPB SCH (07:00)
[2017-09-25 07:09] LABS: Albumin 3.5 g/dL (3.4-4.8); Anion Gap 12 mmol/L (10-20); BUN (Urea Nitrogen) 9 mg/dL (9.8-20.1); BUN/Creatinine Ratio 10.84; Calc. Creatinine Clearance 112 mL/min (70-130); Carbon Dioxide 30 mmol/L (23-31); Chloride 102 mmol/L (98-107); Estimated GFR-MDRD 84; Glucose 112 mg/dL (80-115); Magnesium 1.8 mg/dL (1.6-2.6); Potassium 3.6 mmol/L (3.5-5.1); Sodium 140 mmol/L (136-145)
[2017-09-25] MEDS: Budesonide 0.5 MG/2 ML NEB INH SCH ×2 (07:46→18:57)
[2017-09-25] MEDS: PROVENTIL INHALER 6.7 G (200 INHALATIONS) INH SCH ×2 (07:47→18:58)
[2017-09-25 08:00] LABS: #Basophils 0.1 thou/uL (0.0-0.2); #Eosinphils 0.1 thou/uL (0.0-0.7); #Lymphocytes 1.4 thou/uL (1.20-3.40); #Monocytes 0.6 thou/uL (0.11-0.59); #Neutrophils 3.4 thou/uL (1.40-6.50); %Basophils 0.9 % (0.0-1.0); %Eosinophils 2.3 % (0.0-10.0); %Lymphocytes 24.8 % (21.0-51.0); %Monocytes 11.2 % (0.0-10.0); %Neutrophils 60.7 % (42.0-75.0); Hemoglobin 14.1 g/dL (12.0-16.0); Mean Corpuscular HGB CONC 31.7 g/dL (32.0-36.0); Mean Corpuscular Hemoglobin 28.7 pg (27.0-31.0); Mean Corpuscular Volume 90.4 fl (81.0-99.0); Mean Platelet Volume 7.7 fL (7.4-10.4); Platelet Count 213 thou/uL (130-400); RBC Distribution Width 13.3 % (11.5-14.5); Red Blood Cell (RBC) Count 4.93 mill/uL (4.20-5.40); White Blood Cell (WBC) Count 5.6 thou/uL (4.8-10.8)
[2017-09-25] MEDS ORDERED: Diazepam 5 MG TAB PO SCH (08:00)
[2017-09-25] MEDS ORDERED: Verapamil 5 MG/2 ML VIAL ONE (12:10)
[2017-09-25] MEDS ORDERED: Heparin 10,000 UNITS/1 ML VIAL ONE (12:10)
[2017-09-25] MEDS ORDERED: Nitroglycerin 100MG/250ML BOT 250 ML ONE (12:10)
[2017-09-25] MEDS ORDERED: Midazolam HCl 2 mg/2 ml Vial ONE ×2 (12:13→12:22)
[2017-09-25] MEDS ORDERED: Fentanyl 100 MCG/2 ML VIAL ONE (12:14)
[2017-09-25] MEDS: Furosemide 20 MG/2 ML VIAL SLOW IVP SCH (15:03)
[2017-09-25] MEDS: Spironolactone 25 MG TAB PO SCH (15:03)
[2017-09-25] MEDS: Doxycycline 100 MG CAP PO SCH ×2 (15:03→21:29)
[2017-09-25] MEDS: Senokot S 8.6-50 MG TAB PO SCH ×2 (15:03→21:30)
[2017-09-25] MEDS: guaiFENesin ER 600 MG TAB PO SCH ×2 (15:03→21:33)
[2017-09-25] MEDS: Acetaminophen/Codeine 30-300mg Tablet PO PRN ×2 (16:57→21:38)
[2017-09-25] MEDS: guaiFENesin/Codeine Phosphate 200 mg/20 mg 10 ml UD Cup PO PRN (19:15)
[2017-09-25] MEDS: traMADol HCl 50 MG TAB PO PRN (19:16)
[2017-09-25] MEDS: Atorvastatin Calcium 40 MG TAB PO SCH (21:34)
--- NOTE | 2017-09-25 22:19 | PDOC.PN ---
- Subjective Encounter Start Date: 09/25/17 Encounter Start Time: 19:30 Patient seen and examined for CHF. Still has Cough - productive. No new complaints. No overnight events - Objective MAR Reviewed: Yes Vital Signs & Weight: Vital Signs (12 hours) Temp Pulse Resp BP BP Pulse Ox 09/25/17 21:30 78 145/71 H 09/25/17 18:56 78 18 96 09/25/17 15:03 72 09/25/17 13:32 72 18 97 09/25/17 11:19 98.0 F 81 16 136/91 H 93 L Weight Weight 224 lb 11.2 oz I&O: 09/24/17 09/25/17 09/26/17 06:59 06:59 06:59 Intake Total 400 360 Output Total 1100 650 500 Balance -700 -290 -500 Result Diagrams: 09/26/17 04:55 09/26/17 04:55 EKG Reviewed by me: Yes (Tele Sr) Phys Exam - Physical Examination Constitutional: NAD Respiratory: no wheezing, no rales Dec AE at bases, Scat rhonchi Cardiovascular: RRR, no rub Gastrointestinal: soft, non-tender, positive bowel sounds Musculoskeletal: edema present Neurological: moves all 4 limbs Dx/Plan (1) NSTEMI (non-ST elevated myocardial infarction) Code(s): I21.4 - NON-ST ELEVATION (NSTEMI) MYOCARDIAL INFARCTION Status: Acute Comment: Cath - mild CAD (2) Acute diastolic heart failure Code(s): I50.31 - ACUTE DIASTOLIC (CONGESTIVE) HEART FAILURE Status: Acute Comment: improving with diuretics (3) Acute bronchitis Code(s): J20.9 - ACUTE BRONCHITIS, UNSPECIFIED Status: Acute (4) Chronic respiratory failure with hypoxia Code(s): J96.11 - CHRONIC RESPIRATORY FAILURE WITH HYPOXIA Status: Chronic (5) HTN (hypertension) Code(s): I10 - ESSENTIAL (PRIMARY) HYPERTENSION Status: Chronic (6) Tobacco dependence Code(s): F17.200 - NICOTINE DEPENDENCE, UNSPECIFIED, UNCOMPLICATED Status: Chronic Comment: Quit 2 days ago (7) LBBB (left bundle branch block) Code(s): I44.7 - LEFT BUNDLE-BRANCH BLOCK, UNSPECIFIED Status: Chronic (8) Obesity (BMI 30-39.9) Code(s): E66.9 - OBESITY, UNSPECIFIED Status: Chronic (9) Hypothyroidism Code(s): E03.9 - HYPOTHYROIDISM, UNSPECIFIED Status: Chronic - Plan out of bed/ambulate, DVT proph w/SCDs Cont diuretics -: s/p Cath -: Cont Doxycycline/Expectorant -: CXR in AM to r/o Pneumonia -: Cont current meds as below Review of Systems - Review of Systems Respiratory: Cough, SOB with Excertion. negative: Dry, Shortness of Breath, Hemoptysis, Pleuritic Pain, Sputum, Wheezing Cardiovascular: edema. negative: chest pain, palpitations, orthopnea, paroxysmal nocturnal dyspnea, light headedness, other Gastrointestinal: negative: Nausea, Vomiting, Abdominal Pain, Diarrhea, Constipation, Melena, Hematochezia, Other - Medications/Allergies Allergies/Adverse Reactions: Allergies Allergy/AdvReac Type Severity Reaction Status Date / Time No Known Allergies Allergy Unverified 09/22/17 13:08 Medications: Current Medications Acetaminophen (Tylenol) 1,000 mg PO Q6H PRN PRN Reason: Headache/Fever or Mild Pain Last Admin: 09/24/17 16:33 Dose: 1,000 mg Acetaminophen/Codeine Phosphate (Tylenol #3) 1 tab PO Q4H PRN PRN Reason: Mild Pain (1-3) Last Admin: 09/25/17 21:38 Dose: 1 tab Albuterol Sulfate (Proventil Hfa) 1 puff INH BID-RT [facility] Last Admin: 09/25/17 18:58 Dose: Not Given Albuterol/Ipratropium (Duoneb) 3 ml NEB [id number] LEN Last Admin: 09/25/17 18:56 Dose: 3 ml Albuterol/Ipratropium (Duoneb) 3 ml NEB Q4H PRN PRN Reason: SOB &/or Wheezing Allopurinol (Zyloprim) 200 mg PO DAILY [facility] Last Admin: 09/25/17 05:09 Dose: 200 mg Aspirin (Ecotrin) 81 mg PO DAILY [facility] Atorvastatin Calcium (Lipitor) 40 mg PO QPM [facility] Last Admin: 09/25/17 21:34 Dose: 40 mg Budesonide (Pulmicort Neb Solution) 0.5 mg INH BID-RT [facility] Last Admin: 09/25/17 18:57 Dose: 0.5 mg Bupropion HCl (Wellbutrin Sr) 150 mg PO BID [facility] Last Admin: 09/25/17 21:30 Dose: 150 mg Clonidine (Catapres) 0.1 mg PO Q4H PRN PRN Reason: Systolic BP > 180 Clopidogrel Bisulfate (Plavix) 75 mg PO DAILY [facility] Last Admin: 09/25/17 05:10 Dose: 75 mg Diazepam (Valium) 5 mg PO ONE [facility] Stop: 09/25/17 23:59 Last Admin: 09/25/17 11:35 Dose: 5 mg Doxycycline Hyclate (Vibramycin) 100 mg PO BID [facility] Last Admin: 09/25/17 21:29 Dose: 100 mg Famotidine (Pepcid) 20 mg PO BID [facility] Last Admin: 09/25/17 21:33 Dose: 20 mg Furosemide (Lasix) 20 mg SLOW IVP DAILY [facility] Last Admin: 09/25/17 15:03 Dose: 20 mg Guaifenesin (Mucinex) 600 mg PO Q12HR [facility] Last Admin: 09/25/17 21:33 Dose: 600 mg Guaifenesin (Robitussin Sf) 200 mg PO Q4H PRN PRN Reason: Cough Last Admin: 09/24/17 10:39 Dose: 200 mg Guaifenesin/Codeine Phosphate (Robitussin Ac) 5 ml PO Q6H PRN PRN Reason: Cough Last Admin: 09/25/17 19:15 Dose: 5 ml Hydralazine HCl (Apresoline) 10 mg SLOW IVP Q4H PRN PRN Reason: Systolic BP > 180 Hydralazine HCl (Apresoline) 10 mg PO TID [facility] Last Admin: 09/25/17 21:30 Dose: 10 mg Ceftriaxone Sodium 1 gm/ (Sodium Chloride) 100 mls @ 200 mls/hr IVPB 0700 [facility] Levothyroxine Sodium (Synthroid) 100 mcg PO 0600 [facility] Last Admin: 09/25/17 05:10 Dose: 100 mcg Lisinopril (Zestril) 40 mg PO DAILY [facility] Last Admin: 09/25/17 05:11 Dose: 40 mg Loratadine (Claritin) 10 mg PO HS PRN PRN Reason: ALLERGIES Nebivolol (Bystolic) 10 mg PO DAILY [facility] Last Admin: 09/25/17 05:10 Dose: 10 mg Nifedipine (Procardia Xl) 60 mg PO DAILY [facility] Last Admin: 09/25/17 05:10 Dose: 60 mg Nitroglycerin (Nitrostat) 0.4 mg SL Q5MIN PRN PRN Reason: Chest Pain Ondansetron HCl (Zofran Odt) 4 mg PO Q6H PRN PRN Reason: Nausea/Vomiting Ondansetron HCl (Zofran) 4 mg IVP Q6H PRN PRN Reason: Nausea/Vomiting Potassium Chloride (K-Dur) 20 meq PO BID-[facility] Last Admin: 09/25/17 16:57 Dose: 20 meq Senna/Docusate Sodium (Senokot S) 1 tab PO BID [facility] Last Admin: 09/25/17 21:30 Dose: 1 tab Spironolactone (Aldactone) 25 mg PO QA-[facility] Last Admin: 09/25/17 15:03 Dose: 25 mg Throat Lozenges (Cepastat Lozenges) 1 prasanna PO Q2H PRN PRN Reason: Sore Throat Last Admin: 09/23/17 23:36 Dose: 1 prasanna Tramadol HCl (Ultram) 50 mg PO Q6H PRN PRN Reason: Moderate Pain (4-6) Last Admin: 09/25/17 19:16 Dose: 50 mg
[2017-09-26] MEDS: guaiFENesin/Codeine Phosphate 200 mg/20 mg 10 ml UD Cup PO PRN ×3 (00:51→23:15)
[2017-09-26] MEDS: traMADol HCl 50 MG TAB PO PRN ×2 (00:57→23:19)
[2017-09-26] MEDS: Acetaminophen/Codeine 30-300mg Tablet PO PRN ×3 (05:25→21:57)
[2017-09-26] MEDS: cefTRIAXone\\ROCEPHIN 1 GM in Sodium Chloride 0.9% 100 ML IVPB SCH (05:26)
[2017-09-26] MEDS: Levothyroxine Sodium 100 MCG TAB PO SCH (05:27)
[2017-09-26 05:44] LABS: Hemoglobin 13.1 g/dL (12.0-16.0); Platelet Count 204 thou/uL (130-400)
[2017-09-26 06:14] LABS: Anion Gap 12 mmol/L (10-20); BUN (Urea Nitrogen) 11 mg/dL (9.8-20.1); Calc. Creatinine Clearance 124 mL/min (70-130); Carbon Dioxide 27 mmol/L (23-31); Chloride 105 mmol/L (98-107); Estimated GFR-MDRD Greater than 90; Glucose 114 mg/dL (80-115); Potassium 3.9 mmol/L (3.5-5.1); Sodium 140 mmol/L (136-145)
[2017-09-26] MEDS: Budesonide 0.5 MG/2 ML NEB INH SCH ×2 (06:58→18:37)
[2017-09-26] MEDS: PROVENTIL INHALER 6.7 G (200 INHALATIONS) INH SCH ×2 (06:59→18:37)
--- NOTE | 2017-09-26 09:18 | RAD ---
CHEST TWO VIEWS: History: Cough. Comparison: 09-22-17 FINDINGS: Cardiac silhouette is unremarkable. Pulmonary vasculature remains engorged. Bilateral perihilar and b ibasilar infiltrates are less pronounced than on the previous exam. Mediastinum is midline. No eviden ce of pneumothorax or significant pleural effusion. labor contractor leads overlie the chest. IMPRESSION: Pulmonary vascular congestion has improved slightly since the previous exam. No lobar consolidation. POS: [facility]
[2017-09-26] MEDS: Lisinopril 20 MG TAB PO SCH (10:02)
[2017-09-26] MEDS: Allopurinol 100 MG TAB PO SCH (10:02)
[2017-09-26] MEDS: Aspirin 81 mg Enteric Coated Tablet PO SCH (10:03)
[2017-09-26] MEDS: Bupropion 150 MG SR TAB PO SCH ×2 (10:03→21:56)
[2017-09-26] MEDS: Senokot S 8.6-50 MG TAB PO SCH ×2 (10:03→21:56)
[2017-09-26] MEDS: guaiFENesin ER 600 MG TAB PO SCH ×2 (10:03→21:56)
[2017-09-26] MEDS: Nebivolol HCl 5 MG TAB PO SCH (10:04)
[2017-09-26] MEDS: NIFEdipine XL 60 MG TAB PO SCH (10:04)
[2017-09-26] MEDS: Famotidine 20 MG TAB PO SCH ×2 (10:04→21:56)
[2017-09-26] MEDS: hydrALAZINE 10 MG TAB PO SCH ×3 (10:05→21:56)
[2017-09-26] MEDS: Potassium Chloride 20 MEQ TAB PO SCH ×2 (10:05→18:04)
[2017-09-26] MEDS: Clopidogrel Bisulfate 75 MG TAB PO SCH (10:05)
[2017-09-26] MEDS: Spironolactone 25 MG TAB PO SCH (10:05)
[2017-09-26] MEDS: Doxycycline 100 MG CAP PO SCH ×2 (10:05→21:56)
[2017-09-26] MEDS: Furosemide 20 MG/2 ML VIAL SLOW IVP SCH (10:05)
[2017-09-26] MEDS: Diabetic Tussin 200 MG/10 ML UDCUP PO PRN (12:11)
--- NOTE | 2017-09-26 17:00 | PDOC.PN ---
- Subjective Encounter Start Date: 09/26/17 Encounter Start Time: 14:30 Patient seen and examined for CHF/NSTEMI. Cough slowly improving. Some SOB on exertion. No new complaints. No overnight events - Objective MAR Reviewed: Yes Vital Signs & Weight: Vital Signs (12 hours) Temp Pulse Pulse Pulse Pulse Resp BP 09/26/17 14:33 74 09/26/17 13:50 74 14 09/26/17 11:15 98.7 F 82 16 09/26/17 10:22 81 75 81 09/26/17 10:04 77 156/86 H 09/26/17 10:02 158/86 H 09/26/17 07:36 97.9 F 74 18 09/26/17 06:58 77 18 BP BP BP BP Pulse Ox 09/26/17 14:33 09/26/17 13:50 99 09/26/17 11:15 147/85 H 94 L 09/26/17 10:22 155/91 H 143/86 H 139/80 09/26/17 10:04 09/26/17 10:02 09/26/17 07:36 158/86 H 97 09/26/17 06:58 96 Weight Weight 225 lb 3.2 oz I&O: 09/25/17 09/26/17 09/27/17 06:59 06:59 06:59 Intake Total 360 950 Output Total 650 500 Balance -290 450 Result Diagrams: 09/26/17 04:55 09/26/17 04:55 EKG Reviewed by me: Yes (Tele SR) Phys Exam - Physical Examination Constitutional: NAD Respiratory: no wheezing, no rales Scat rhonchi Cardiovascular: RRR, no rub Gastrointestinal: soft, non-tender, positive bowel sounds Musculoskeletal: edema present Neurological: moves all 4 limbs Dx/Plan (1) NSTEMI (non-ST elevated myocardial infarction) Code(s): I21.4 - NON-ST ELEVATION (NSTEMI) MYOCARDIAL INFARCTION Status: Acute Comment: Cath - mild CAD (2) Acute diastolic heart failure Code(s): I50.31 - ACUTE DIASTOLIC (CONGESTIVE) HEART FAILURE Status: Acute Comment: improving with diuretics (3) Acute bronchitis Code(s): J20.9 - ACUTE BRONCHITIS, UNSPECIFIED Status: Acute Comment: on Atbx (4) Chronic respiratory failure with hypoxia Code(s): J96.11 - CHRONIC RESPIRATORY FAILURE WITH HYPOXIA Status: Chronic (5) HTN (hypertension) Code(s): I10 - ESSENTIAL (PRIMARY) HYPERTENSION Status: Chronic (6) Tobacco dependence Code(s): F17.200 - NICOTINE DEPENDENCE, UNSPECIFIED, UNCOMPLICATED Status: Chronic Comment: Counselled. (7) LBBB (left bundle branch block) Code(s): I44.7 - LEFT BUNDLE-BRANCH BLOCK, UNSPECIFIED Status: Chronic (8) Obesity (BMI 30-39.9) Code(s): E66.9 - OBESITY, UNSPECIFIED Status: Chronic Comment: Counselled. (9) Hypothyroidism Code(s): E03.9 - HYPOTHYROIDISM, UNSPECIFIED Status: Chronic Comment: on Replacement - Plan DVT proph w/SCDs Cont Atbx/Nebs/Diuretics/O2 -: Cont current meds as below -: Will d/w Cardio if Plavix can be discontinued -: DC planning prob in AM if ok with Cardiology -: Counselled on CHF Review of Systems - Review of Systems Constitutional: negative: fever, chills, sweats, weakness, malaise, other Respiratory: Cough, SOB with Excertion, Sputum. negative: Dry, Shortness of Breath, Hemoptysis, Pleuritic Pain, Wheezing Cardiovascular: negative: chest pain, palpitations, orthopnea, paroxysmal nocturnal dyspnea, edema, light headedness, other - Medications/Allergies Allergies/Adverse Reactions: Allergies Allergy/AdvReac Type Severity Reaction Status Date / Time No Known Allergies Allergy Unverified 09/22/17 13:08 Medications: Current Medications Acetaminophen (Tylenol) 1,000 mg PO Q6H PRN PRN Reason: Headache/Fever or Mild Pain Last Admin: 09/24/17 16:33 Dose: 1,000 mg Acetaminophen/Codeine Phosphate (Tylenol #3) 1 tab PO Q4H PRN PRN Reason: Mild Pain (1-3) Last Admin: 09/26/17 10:26 Dose: 1 tab Albuterol Sulfate (Proventil Hfa) 1 puff INH BID-RT LEN Last Admin: 09/26/17 06:59 Dose: Not Given Albuterol/Ipratropium (Duoneb) 3 ml NEB [id number] LEN Last Admin: 09/26/17 13:50 Dose: 3 ml Albuterol/Ipratropium (Duoneb) 3 ml NEB Q4H PRN PRN Reason: SOB &/or Wheezing Allopurinol (Zyloprim) 200 mg PO DAILY [facility] Last Admin: 09/26/17 10:02 Dose: 200 mg Aspirin (Ecotrin) 81 mg PO DAILY [facility] Last Admin: 09/26/17 10:03 Dose: 81 mg Atorvastatin Calcium (Lipitor) 40 mg PO QPM [facility] Last Admin: 09/25/17 21:34 Dose: 40 mg Budesonide (Pulmicort Neb Solution) 0.5 mg INH BID-RT [facility] Last Admin: 09/26/17 06:58 Dose: 0.5 mg Bupropion HCl (Wellbutrin Sr) 150 mg PO BID [facility] Last Admin: 09/26/17 10:03 Dose: 150 mg Clonidine (Catapres) 0.1 mg PO Q4H PRN PRN Reason: Systolic BP > 180 Clopidogrel Bisulfate (Plavix) 75 mg PO DAILY [facility] Last Admin: 09/26/17 10:05 Dose: 75 mg Doxycycline Hyclate (Vibramycin) 100 mg PO BID [facility] Last Admin: 09/26/17 10:05 Dose: 100 mg Famotidine (Pepcid) 20 mg PO BID [facility] Last Admin: 09/26/17 10:04 Dose: 20 mg Furosemide (Lasix) 20 mg SLOW IVP DAILY [facility] Last Admin: 09/26/17 10:05 Dose: 20 mg Guaifenesin (Mucinex) 600 mg PO Q12HR [facility] Last Admin: 09/26/17 10:03 Dose: 600 mg Guaifenesin (Robitussin Sf) 200 mg PO Q4H PRN PRN Reason: Cough Last Admin: 09/26/17 12:11 Dose: 200 mg Guaifenesin/Codeine Phosphate (Robitussin Ac) 5 ml PO Q6H PRN PRN Reason: Cough Last Admin: 09/26/17 00:51 Dose: 5 ml Hydralazine HCl (Apresoline) 10 mg SLOW IVP Q4H PRN PRN Reason: Systolic BP > 180 Hydralazine HCl (Apresoline) 10 mg PO TID [facility] Last Admin: 09/26/17 14:33 Dose: 10 mg Ceftriaxone Sodium 1 gm/ (Sodium Chloride) 100 mls @ 200 mls/hr IVPB 0700 [facility] Last Admin: 09/26/17 05:26 Dose: 100 mls Levothyroxine Sodium (Synthroid) 100 mcg PO 0600 [facility] Last Admin: 09/26/17 05:27 Dose: 100 mcg Lisinopril (Zestril) 40 mg PO DAILY [facility] Last Admin: 09/26/17 10:02 Dose: 40 mg Loratadine (Claritin) 10 mg PO HS PRN PRN Reason: ALLERGIES Nebivolol (Bystolic) 10 mg PO DAILY [facility] Last Admin: 09/26/17 10:04 Dose: 10 mg Nifedipine (Procardia Xl) 60 mg PO DAILY [facility] Last Admin: 09/26/17 10:04 Dose: 60 mg Nitroglycerin (Nitrostat) 0.4 mg SL Q5MIN PRN PRN Reason: Chest Pain Ondansetron HCl (Zofran Odt) 4 mg PO Q6H PRN PRN Reason: Nausea/Vomiting Ondansetron HCl (Zofran) 4 mg IVP Q6H PRN PRN Reason: Nausea/Vomiting Potassium Chloride (K-Dur) 20 meq PO BID-[facility] Last Admin: 09/26/17 10:05 Dose: 20 meq Senna/Docusate Sodium (Senokot S) 1 tab PO BID [facility] Last Admin: 09/26/17 10:03 Dose: 1 tab Spironolactone (Aldactone) 25 mg PO QA-[facility] Last Admin: 09/26/17 10:05 Dose: 25 mg Throat Lozenges (Cepastat Lozenges) 1 prasanna PO Q2H PRN PRN Reason: Sore Throat Last Admin: 09/23/17 23:36 Dose: 1 prasanna Tramadol HCl (Ultram) 50 mg PO Q6H PRN PRN Reason: Moderate Pain (4-6) Last Admin: 09/26/17 00:57 Dose: 50 mg
--- NOTE | 2017-09-26 19:08 | PRG ---
DATE OF SERVICE: 09/26/2017 SUBJECTIVE: Ms. Mcgee complains of a lot of groin pain today. Her breathing is about the same. OBJECTIVE: VITAL SIGNS: Blood pressure 147/85, pulse is 80. LUNGS: Clear. CARDIAC: Normal S1 and S2. The groin is sore. ASSESSMENT: 1. No obstructive coronary artery disease. 2. History of chronic obstructive pulmonary disease. 3. History of smoking. 4. Hypertension. PLAN: 1. We will go ahead and do an ultrasound of the groin tomorrow to make sure there is no pseudoaneury sm. 2. She does have some degree of left ventricular dysfunction. Continue lisinopril and Bystolic as w ell as furosemide, continue spironolactone. 3. We will likely be ready to go home tomorrow.
[2017-09-26] MEDS ORDERED: Sodium Chloride 0.9% 10 ML ONE (21:02)
[2017-09-26] MEDS: Atorvastatin Calcium 40 MG TAB PO SCH (21:56)
--- NOTE | 2017-09-26 23:11 | ULT ---
ULTRASOUND PSEUDOANEURYSM COMPLETE EVALUATION WITH COMPRESSION 09/26/17 COMPARISON: None. TECHNIQUE: Real time weeks scale, color doppler with spectral analysis of the right groin vasculature. FINDINGS: No pseudoaneurysm. No large hematoma. Mild soft tissue edema. IMPRESSION: No evidence of pseudoaneurysm. POS: [facility]
[2017-09-27] MEDS: guaiFENesin/Codeine Phosphate 200 mg/20 mg 10 ml UD Cup PO PRN (06:14)
[2017-09-27] MEDS: traMADol HCl 50 MG TAB PO PRN (06:14)
[2017-09-27] MEDS: Levothyroxine Sodium 100 MCG TAB PO SCH (06:15)
[2017-09-27] MEDS: cefTRIAXone\\ROCEPHIN 1 GM in Sodium Chloride 0.9% 100 ML IVPB SCH (06:15)
[2017-09-27 08:01] VITALS: TEMP 98.5
[2017-09-27] MEDS: Budesonide 0.5 MG/2 ML NEB INH SCH (08:07)
[2017-09-27] MEDS: PROVENTIL INHALER 6.7 G (200 INHALATIONS) INH SCH (08:10)
--- NOTE | 2017-09-27 09:33 | PRG ---
DATE OF SERVICE: 09/27/2017 Ms. Mcgee is doing better today. She feels better. She had an ultrasound of the right groin, it i s normal. PHYSICAL EXAMINATION: VITAL SIGNS: Blood pressure 133/77, pulse 77. LUNGS: Clear. CARDIAC: Normal S1, S2. ASSESSMENT: 1. Chronic obstructive pulmonary disease. 2. Non-ST elevation infarction, but no obstructive coronary artery disease. 3. Hypertension. 4. Hypercholesterolemia. PLAN: Okay to be released home on the current medical regimen. She was hypokalemic when she came in . We have added spironolactone and I would recommend checking a base met within a month. She will s ee me if needed. Otherwise, she will follow up with her primary care physician, Dr. Mcgee. COMMENT: We have stressed the critical importance of not smoking to this patient. She is already hy poxemic on room air and is developing severe COPD. She understands it is critically important she no t smoke. She said she will quit. She has not smoked since admitting here.
[2017-09-27] MEDS: Famotidine 20 MG TAB PO SCH (09:56)
[2017-09-27] MEDS: Nebivolol HCl 5 MG TAB PO SCH (09:56)
[2017-09-27] MEDS: NIFEdipine XL 60 MG TAB PO SCH (09:57)
[2017-09-27] MEDS: Allopurinol 100 MG TAB PO SCH (09:57)
[2017-09-27] MEDS: Lisinopril 20 MG TAB PO SCH ×2 (09:57→09:58)
[2017-09-27] MEDS: guaiFENesin ER 600 MG TAB PO SCH (09:57)
[2017-09-27] MEDS: Doxycycline 100 MG CAP PO SCH (09:57)
[2017-09-27] MEDS: Aspirin 81 mg Enteric Coated Tablet PO SCH (09:58)
[2017-09-27] MEDS: Senokot S 8.6-50 MG TAB PO SCH (09:58)
[2017-09-27] MEDS: Bupropion 150 MG SR TAB PO SCH (09:58)
[2017-09-27] MEDS: Spironolactone 25 MG TAB PO SCH (09:58)
[2017-09-27] MEDS: hydrALAZINE 10 MG TAB PO SCH (09:59)
[2017-09-27 10:00] VITALS: BP 158/86
[2017-09-27] MEDS: Furosemide 20 MG/2 ML VIAL SLOW IVP SCH (10:31)
[2017-09-27] MEDS: Potassium Chloride 20 MEQ TAB PO SCH (10:31)
[2017-09-27] MEDS ORDERED: Furosemide 20 MG TAB PO SCH (14:00)
[2017-09-27] MEDS ORDERED: Furosemide 40 MG TAB PO SCH (14:00)
--- NOTE | 2017-09-27 17:10 | DIS ---
DATE OF DISCHARGE: 09/27/2017 DISCHARGE DISPOSITION: Home. FOLLOWUP: 1. Follow up with primary care physician, Dr. Mcgee next week. 2. Follow up with Dr. Bailey in 2 weeks. ALLERGIES: No known drug allergies. The patient was seen and examined on the day of discharge. Denies any new complaints. Shortness of breath has improved. Base met after 1 week and 1 month is recommended. Primary care physician advis ed to follow. DISCHARGE MEDICATIONS: Aspirin 81 mg daily, Omnicef 300 mg twice a day for the next 5 days, doxycycl ine 100 mg twice a day for the next 5 days, Mucinex twice a day, DuoNebs as needed, Aldactone 25 mg d aily, tramadol as needed. All other home medications were resumed including Lasix, lisinopril and po tassium chloride. INPATIENT BISQUE CLEANER: Cardiology, Dr. Bailey. BRIEF HOSPITAL COURSE: Patient is a 62-year-old -[place] female with chronic respiratory americo lure, on home oxygen, congestive heart failure/COPD, presented to the emergency room with chest disco mfort with shortness of breath. Her workup was consistent with non-ST elevation PR with troponin max imum of 17.1. Please refer to the history and physical for further details. The patient was admitted to the hospital with a diagnosis of non-ST elevation PR with acute on chroni c diastolic heart failure exacerbation. BNP on admission was 640. She showed good improvement with diuretics. Her cardiac catheterization was performed that showed 40% stenosis in the mid LAD and 40% stenosis in the proximal RCA. She was also found to have acute bronchitis that improved with nebuli zer treatment and steroids. Echocardiogram showed left ventricular ejection fraction 55-60% with sev ere concentric left ventricular hypertrophy. Due to right groin discomfort over the cardiac catheter ization site, a pseudoaneurysm was ruled out. Patient has been cleared by Cardiology for discharge. FINAL DIAGNOSES: 1. Non-ST elevation myocardial infarction, status post cardiac catheterization. 2. Acute on chronic diastolic heart failure exacerbation. 3. Hypertension with hypertensive heart disease. 4. Acute bronchitis. 5. Chronic obstructive pulmonary disease with chronic respiratory failure, on home oxygen. 6. Tobacco dependence. Patient was counseled. 7. Chronic left bundle-branch block. 8. Obesity with a BMI of 37.7. 9. Hypothyroidism. 10. Hypokalemia. Plan of care was discussed with the patient in detail. She stated understanding. Total time coordinating the discharge of this patient was 37 minutes.
[2017-09-28] MEDS ORDERED: Potassium Chloride 20 MEQ TAB PO SCH (08:00)
== END 2017-09-27 14:58 | disposition home or self-care (01) | DRG 280 ==
LOC: ERS 09:53 → 2SW 13:11 → OBSVTOIN 15:41 → 2NO 19:42
PROVIDERS: ADMIT Family Medicine; ATTEND Family Medicine
PROC: 4A023N7 Measurement of Cardiac Sampling and Pressure, Left Heart, Percutaneous Approach (ICD-10-PCS; principal; 2017-09-25)
PROC: B2111ZZ Fluoroscopy of Multiple Coronary Arteries using Low Osmolar Contrast (ICD-10-PCS; 2017-09-25)
PROC: B2151ZZ Fluoroscopy of Left Heart using Low Osmolar Contrast (ICD-10-PCS; 2017-09-25)
DX: I21.4 Non-ST elevation (NSTEMI) myocardial infarction (principal); I50.33 Acute on chronic diastolic (congestive) heart failure; J44.0 Chronic obstructive pulmonary disease with (acute) lower respiratory infection; I69.354 Hemiplegia and hemiparesis following cerebral infarction affecting left non-dominant side; I11.0 Hypertensive heart disease with heart failure; E03.9 Hypothyroidism, unspecified; E78.5 Hyperlipidemia, unspecified; E87.6 Hypokalemia; J20.9 Acute bronchitis, unspecified; F17.210 Nicotine dependence, cigarettes, uncomplicated; E66.9 Obesity, unspecified; Z68.37 Body mass index [BMI] 37.0-37.9, adult; Z99.81 Dependence on supplemental oxygen; Z79.899 Other long term (current) drug therapy
CPT/HCPCS: 36415; 71045; 71046; 76936; 80048; 80053; 80061; 80069; 82550; 82553; 83735; 83880; 84484; 85007; 85014; 85018; 85025; 85027; 85049; 85610; 85730; 93005; 93306; 93458; 93798; 94640; 96372; 99152; A4216; C1760; C1769; G8978-GP-CN; G8979-GP-CK; J0696; J1644; J1650; J1940; J2001; J2250; J2270; J3010; J3475; J7050; J7620; J7626

== ENCOUNTER 2019-02-15 21:11 | Inpatient (IN) | payer OTHER ==
[2019-02-16 00:19] LABS: CKMB 4.6 ng/mL (0-6.6)
[2019-02-16] MEDS ORDERED: cefTRIAXone\\ROCEPHIN 2 GM VIAL ONE (00:19)
[2019-02-16] MEDS ORDERED: Furosemide 20 MG/2 ML VIAL ONE (00:19)
[2019-02-16] MEDS ORDERED: Acetaminophen 325 MG TAB PO PRN ×2 (02:28→09:24)
[2019-02-16 03:04] VITALS: BMI 34.2
[2019-02-16 03:04] LABS: Troponin I 0.052 ng/mL (< 0.028)
[2019-02-16 06:17] LABS: Troponin I 0.058 ng/mL (< 0.028)
--- NOTE | 2019-02-16 08:46 | CT ---
PRELIMINARY REPORT/[facility]/EMERGENCY AFTER HOURS PROCEDURE: PROCEDURE INFORMATION: Exam: CT Angiography Chest With Contrast Exam date and time: 02/16/2019 12:57 AM Clinical history: 63 years old, female; Dyspnea and shortness of breath; Patient HX: F63 with HX of c hf and copd presented to the ED with a C/O exacerbated copd onset x2 days. PT reports using oxygen. P T reports HX of copd. PT denies wheezing. PT reports SOB. PT reports she was admitted for same symptoms a long time ago. PT reports she feels better after the breathing treatments. PT den ies HX dvt, pe TECHNIQUE: Imaging protocol: Computed tomographic angiography of the chest with intravenous contrast. 3D rendering: MIP reconstructed images were created and reviewed. COMPARISON: No relevant prior studies available. FINDINGS: Pulmonary arteries: Moderately dilated main pulmonary outflow trunk. Small pericardial effusion. Aorta: Unremarkable. No aortic aneurysm. No aortic dissection. Lungs: Moderate centrilobular emphysematous disease. Moderate bibasal atelectasis. Trace right pleural effusion. Minimal left basilar atelectasis. Pleural space: See Lungs Finding. Heart: See Pulmonary Arteries Finding. Adrenals: Left adrenal adenoma. 1.9 cm left paratracheal soft tissue mass which could represent parat hyroid mass. Lymph nodes: Minimally enlarged right hilar lymph node. Bones/joints: Unremarkable. No acute fracture. Soft tissues: The soft tissues of the axilla, neck and chest wall are unremarkable. IMPRESSION: 1. No evidence of pulmonary embolus. No evidence of acute pulmonary pathology. 2. Moderately dilated pulmonary outflow trunk and main pulmonary arteries concerning for pulmonary ar bob hypertension. 3. 1.9 cm left paratracheal soft tissue mass possibly representing parathyroid mass Thank you for allowing us to participate in the care of your patient. Dictated and Authenticated by: Yoel Galvan MD 02/16/2019 1:29 AM Central Time ([place] & [place]) FINAL REPORT EMERGENT AFTER HOURS CT ANGIOGRAM THORAX WITH IV CONTRAST AND 3D RECONSTRUCTIONS: HISTORY: Elevated D-dimer and dyspnea. COPD exacerbation. COMPARISON: CT thorax on 10/07/2010. IMPRESSION: 1. No filling defects are seen in the pulmonary arteries to suggest a pulmonary embolus. Pulmonary arteries are dilated suggesting pulmonary artery hypertension. 2. Vascular calcifications in the thoracic aorta and to a lesser extent involving the coronary arter ies. 3. Small pericardial effusion. 4. Tiny right pleural effusion with bibasilar atelectasis. 5. Evidence of chronic obstructive pulmonary disease and mild chronic lung changes. 6. No discrete pulmonary nodule or consolidation is seen. 7. Findings suggestive of thyroidectomy, but there is a small heterogeneous nodule in the region of the thyroid bed on the left measuring 1.8 cm x 1.7 cm. ENT consultation may be helpful for further e valuation and/or possible thyroid ultrasound. 8. Prominent thickening of each adrenal gland. 9. Incomplete visualization of a hypodense lesion superior pole left kidney. This cannot be further characterized or evaluated on this exam. Nonemergent renal sonogram is recommended. 10. Findings are in agreement with the preliminary report by [facility]. As noted on the prel iminary report, the soft tissue mass-like density in the expected location of the left lobe of the th yroid gland could represent a parathyroid lesion. ENT consultation may be helpful for further evalua tion and/or possible thyroid ultrasound. POS: OFF
[2019-02-16] MEDS ORDERED: Bisacodyl 5 MG TAB PO PRN (09:24)
[2019-02-16] MEDS ORDERED: Ondansetron ODT 4 MG TAB PO PRN (09:24)
[2019-02-16] MEDS ORDERED: Ondansetron PF 4 MG/2 ML Vial IVP PRN (09:24)
[2019-02-16] MEDS ORDERED: hydrALAZINE 20 MG/ML VIAL SLOW IVP PRN (09:24)
--- NOTE | 2019-02-16 10:13 | HP ---
PRIMARY CARE PHYSICIAN: Jadyn Mcgee DO. CHIEF COMPLAINT: "I couldn't breathe." HISTORY OF PRESENT ILLNESS: Ms. Mcgee is a very pleasant 63-year-old female, who has a history of COPD as well as hypertension and coronary artery disease. She states that she was doing well until . She says that she started moving things around the house and noticed that she was getting short of breath. She says that she would have to sit down for a few minutes in order to rest and try to catch her breath. She even took a few puffs on her inhalers, but it did not really help. She is a smoker and she says that she stops smoking for the rest of the day, thinking this would help, but instead things got actually worse. She said that what got her is that she went to the bathroom and was barely able to make it from her bedroom to her bathroom without being extremely short of breath. She says when she reached her bathroom, she was gasping for air. She was in fact is "stuck on the toilet and couldn't move" due to shortness of breath. Luckily her friend actually came into her house and asked her if she needed some help and she says that she needed help to get up from the bathroom to her bedroom and just laid there. Eventually, her daughter came by the following morning and said that she had been lying in the bed all day and brought her to the hospital for evaluation. When she was evaluated, she was found to have a chest x-ray, which was essentially negative and is being admitted for COPD exacerbation. It is noted that she is on home oxygen 2 L and she does admit that she continues to smoke at least a pack a day. She admits to having some fever off and on and a cough, which has been productive of some clear phlegm. She denies any chest pain, however. She has stable swelling in her left leg, she says, after having a stroke, but no other symptoms. REVIEW OF SYSTEMS: CONSTITUTIONAL: She admits to subjective fever, but no chills. No night sweats. No weight loss. HEENT: She denies any headaches, no dizziness, no visual changes, no sore throat or rhinorrhea. NECK: No neck pain. No adenopathy. PULMONARY: As in history of present illness. CARDIOVASCULAR: She denies chest pain. She has dyspnea on exertion. No PND. No orthopnea. No lower extremity edema. GASTROINTESTINAL: MUSCULOSKELETAL: There is no muscle pains, weakness, or joint pains. NEUROLOGIC: No focal weakness or numbness. No seizures. PSYCHIATRIC: No symptoms of anxiety or depression. SKIN AND INTEGUMENT: No skin changes, no rash. MUSCULOSKELETAL: No muscle pains, weakness, or joint pains. PAST MEDICAL HISTORY: Significant for hypertension, hypothyroidism, hyperlipidemia, cerebrovascular accident with left-sided weakness as well as chronic obstructive pulmonary disease and coronary artery disease. PAST SURGICAL HISTORY: She has had a hysterectomy and thyroidectomy as well as a stent placed. ALLERGIES: NO KNOWN DRUG ALLERGIES. SOCIAL HISTORY: She is single, has 2 children. She smokes about a pack a day for 40 years. Denies any alcohol use. The patient wants to be a full code. The patient is a full code and either of her daughters, Eloy or Katja can be her surrogate decision makers. FAMILY HISTORY: No history of any heritable diseases. CURRENT MEDICATIONS: Include 1. Tramadol 50 mg q.6 as needed. 2. Aldactone 25 mg daily. 3. Potassium chloride extended release 20 mEq daily. 4. Nifedipine extended release 60 mg daily. 5. Bystolic 10 mg daily. 6. Lisinopril 40 mg daily. 7. Levothyroxine 100 mcg p.o. daily. 8. Hydralazine 10 mg q.i.d. 9. Lasix 40 mg twice a day. 10. Lipitor 80 mg at bedtime. 11. Allopurinol 100 mg daily. 12. ProAir inhaler p.r.n. PHYSICAL EXAMINATION: GENERAL: She is alert and oriented. She appears to be in no acute distress. She is sitting up in the bed eating and watching TV. She is well developed and well nourished. VITAL SIGNS: Her blood pressure is 144/96, heart rate 94, respiratory rate of 30, temperature she is afebrile. HEENT: Pupils are equal, round, and reactive. Extraocular muscles are intact. Her sclerae anicteric. Throat, no erythema, no exudates. NECK: No adenopathy, no bruits. LUNGS: Essentially clear. However, she does have poor air movement and just diffuse faint wheezing. No rales, no rhonchi. CARDIOVASCULAR: She has a normal S1, S2. I did not appreciate an S3 or S4. No murmurs, clicks, or rubs. ABDOMEN: Soft, it is obese. She has a ventral midline hernia, easily reducible. There is no rebound, no guarding, no organomegaly. EXTREMITIES: There is no calf tenderness. No edema. No joint effusions. Palpable dorsalis pedis pulses bilaterally. NEUROLOGIC: Essentially nonfocal. SKIN AND INTEGUMENT: No skin changes, no rash. IMAGING STUDIES: She had a CT angiogram of the chest showing no evidence of any pulmonary embolism. However, there was noted a possible parathyroid mass. She had a chest x-ray, which by my reading shows a bit poorly penetrated. The heart size appears normal to slightly enlarged and no infiltrates or effusions. This is by my reading. LABORATORY DATA: These are from yesterday. White blood cell count 8.1, hemoglobin 13.4, hematocrit ia 44.8, and platelet count is 241. Sodium 144, potassium 4.0, chloride is 104, CO2 is 30, BUN of 14, creatinine 0.97, glucose is 143. ASSESSMENT: 1. This is a pleasant 63-year-old female, who is being admitted for acute on chronic respiratory failure with hypoxemia, likely due to chronic obstructive pulmonary disease. She will be admitted to telemetry. We will continue DuoNebs, steroids, and empiric antibiotics and supplemental oxygen. 2. Tobacco abuse. She has been counseled on the need for smoking cessation and that the smoking cessation needs to be sustained before she can see any improvement in her chronic obstructive pulmonary disease. 3. Coronary artery disease. This appears to be clinically stable. She has had some troponins in the indeterminate range, but they are much lower than they have been in the past. 4. Hypertension. We will reconcile and restart her home medications in addition to p.r.n. medicines for her blood pressure. 5. Hypothyroidism. She appears to be clinically euthyroid. We will continue her home medications. 6. Incidental finding of parathyroid mass. She has been told about this result and that she will need to have this followed up with Dr. Mcgee in the outpatient setting and she will be placed on DVT and GI prophylaxis. Job ID: [id number]
[2019-02-16] MEDS ORDERED: Famotidine 20 MG TAB PO SCH (10:15)
[2019-02-16] MEDS ORDERED: Allopurinol 100 MG TAB PO SCH (10:15)
[2019-02-16] MEDS ORDERED: Potassium Chloride 20 MEQ TAB PO SCH (10:15)
[2019-02-16] MEDS ORDERED: Nebivolol HCl 5 MG TAB PO SCH (10:15)
[2019-02-16] MEDS ORDERED: Levothyroxine Sodium 100 MCG TAB PO SCH (10:15)
[2019-02-16] MEDS ORDERED: Furosemide 40 MG TAB PO SCH (10:15)
[2019-02-16] MEDS ORDERED: NIFEdipine XL 60 MG TAB PO SCH (10:15)
[2019-02-16] MEDS ORDERED: Spironolactone 25 MG TAB PO SCH (10:15)
[2019-02-16] MEDS ORDERED: Lisinopril 20 MG TAB PO SCH (10:15)
[2019-02-16] MEDS ORDERED: Enoxaparin Sodium 40 MG/0.4 ML SYRINGE SC SCH (10:15)
[2019-02-16] MEDS ORDERED: Azithromycin 250 MG TAB PO SCH (10:15)
[2019-02-16] MEDS: Allopurinol 100 MG TAB PO SCH (10:56)
[2019-02-16] MEDS: Nicotine 14 MG PATCH TD SCH (10:56)
[2019-02-16] MEDS: hydrALAZINE 10 MG TAB PO SCH ×3 (12:23→21:13)
[2019-02-16] MEDS: methylPREDNISolone Sod Succ 40 MG VIAL IVP SCH ×3 (12:36→23:37)
[2019-02-16] MEDS ORDERED: Iopamidol 370 76% 100 ML VIAL ONE (13:02)
[2019-02-16] MEDS: Benzonatate 100 MG CAP PO PRN (18:18)
--- NOTE | 2019-02-16 18:20 | CON ---
DATE OF CONSULTATION: 02/16/2019 HISTORY OF PRESENT ILLNESS: Ms. Mcgee is a 63-year-old female, who presents with several days of increasing shortness of breath. She has been told she has chronic obstructive pulmonary disease in the past and says she does not recall seeing pulmonary doctor in the office. She is admitted with a diagnosis of COPD exacerbation. Says she is already feeling better. She denies fever, chills, sweats, or hemoptysis. She had a CT pulmonary angiogram done in the emergency room, which showed no thromboembolic disease. There was a peritracheal mass seen in the area of her parathyroids. PAST MEDICAL HISTORY: Remarkable for, 1. Hypertension. 2. Hypothyroidism. 3. Lipid disorder. 4. History of cerebrovascular accident. 5. History of coronary artery disease. 6. History of hysterectomy. 7. History of thyroidectomy in the past. 8. History of chronic hypoxemic respiratory failure with oxygen at home. 9. Ongoing tobacco use. 10. History of diastolic heart failure. 11. History of cardiac catheterization in 2018 showing a 40% LAD lesion, 40% lesion of proximal right coronary, and severe left ventricular concentric hypertrophy. FAMILY HISTORY: Negative for lung disease in early age. SOCIAL HISTORY: She is still smoking. She is not a daily drinker. ALLERGIES: SHE HAS NO ALLERGIES REPORTED. MEDICATIONS: Reviewed. REVIEW OF SYSTEMS: Ten-point review of systems completed, otherwise negative. PHYSICAL EXAMINATION: GENERAL: She is in no distress. She is afebrile, heart rate 73, respiratory rate 17, oximetry is 99% on 3 L, blood pressure 149/87. HEENT: Pupils are equal. Sclerae are anicteric. Extraocular movements full. NECK: Supple. LUNGS: Clear. HEART: Regular rhythm. S1 and S2 are normal. ABDOMEN: Soft and nontender. EXTREMITIES: Without clubbing, cyanosis, or edema. NEURO: Nonfocal. DIAGNOSTIC DATA: Chest radiograph shows no infiltrates. CT angiogram shows no evidence of embolic disease. IMPRESSION: 1. Chronic obstructive pulmonary disease exacerbation. 2. ? parathyroid mass. 3. History of coronary artery disease. Overall, she appears to be stable. Follow the other physicians caring for. This is a 50 minute consult, with greater than 50% of time spent on unit coordinating care. Job ID: [id number] [facility]
[2019-02-16] MEDS: Mometasone/Formoterol 120 PUFF INHALER INH SCH (18:47)
[2019-02-16] MEDS ORDERED: Atorvastatin Calcium 20 MG TAB PO SCH (21:00)
[2019-02-16] MEDS: Famotidine 20 MG TAB PO SCH (21:13)
[2019-02-16] MEDS: Atorvastatin Calcium 40 MG TAB PO SCH (21:13)
[2019-02-16] MEDS: Furosemide 40 MG TAB PO SCH (21:14)
[2019-02-16] MEDS ORDERED: cefTRIAXone\\ROCEPHIN 1 GM in Sodium Chloride 0.9% 100 ML IVPB SCH (23:00)
[2019-02-17] MEDS: methylPREDNISolone Sod Succ 40 MG VIAL IVP SCH ×2 (05:20→12:27)
[2019-02-17] MEDS: Benzonatate 100 MG CAP PO PRN ×3 (05:30→21:27)
[2019-02-17 05:41] LABS: #Lymphocytes 0.6 thou/uL (1.20-3.40); #Monocytes 0.3 thou/uL (0.11-0.59); #Neutrophils 7.8 thou/uL (1.40-6.50); %Basophils 0.1 % (0.0-1.0); %Eosinophils 0.1 % (0.0-10.0); %Neutrophils 89.9 % (42.0-75.0); Hemoglobin 12.8 g/dL (12.0-16.0); Mean Corpuscular HGB CONC 32.5 g/dL (32.0-36.0); Mean Corpuscular Hemoglobin 29.5 pg (27.0-31.0); Mean Corpuscular Volume 90.8 fL (78.0-98.0); Platelet Count 228 thou/uL (130-400); RBC Distribution Width 13.8 % (11.5-14.5); Red Blood Cell (RBC) Count 4.35 mill/uL (4.20-5.40); White Blood Cell (WBC) Count 8.7 thou/uL (4.8-10.8)
[2019-02-17 05:59] LABS: Anion Gap 16 mmol/L (10-20); BUN (Urea Nitrogen) 22 mg/dL (9.8-20.1); Calc. Creatinine Clearance 72 mL/min (70-130); Calcium 9.1 mg/dL (7.8-10.44); Carbon Dioxide 26 mmol/L (23-31); Chloride 101 mmol/L (98-107); Estimated GFR-MDRD 59; Glucose 211 mg/dL (80-115); Potassium 4.4 mmol/L (3.5-5.1); Sodium 139 mmol/L (136-145)
[2019-02-17] MEDS: Mometasone/Formoterol 120 PUFF INHALER INH SCH ×2 (07:50→19:02)
[2019-02-17] MEDS: Spironolactone 25 MG TAB PO SCH (08:58)
[2019-02-17] MEDS: Allopurinol 100 MG TAB PO SCH ×2 (08:58→13:15)
[2019-02-17] MEDS: Famotidine 20 MG TAB PO SCH ×2 (08:59→21:19)
[2019-02-17] MEDS: Furosemide 40 MG TAB PO SCH ×2 (08:59→21:19)
[2019-02-17] MEDS: NIFEdipine XL 60 MG TAB PO SCH (08:59)
[2019-02-17] MEDS: Azithromycin 250 MG TAB PO SCH (08:59)
[2019-02-17] MEDS: Nebivolol HCl 5 MG TAB PO SCH (08:59)
[2019-02-17] MEDS ORDERED: Non-Formulary Item 1 EACH (Nifedipine [Nifedipine Er] 60 MG) PO SCH (09:00)
[2019-02-17] MEDS ORDERED: Non-Formulary Item 1 EACH (Lisinopril [Lisinopril] 40 MG) PO SCH (09:00)
[2019-02-17] MEDS ORDERED: Non-Formulary Item 1 EACH (Nebivolol Hcl [Bystolic] 10 MG) PO SCH (09:00)
[2019-02-17] MEDS: Enoxaparin Sodium 40 MG/0.4 ML SYRINGE SC SCH (09:00)
[2019-02-17] MEDS: Levothyroxine Sodium 100 MCG TAB PO SCH (09:01)
[2019-02-17] MEDS: hydrALAZINE 10 MG TAB PO SCH ×4 (09:01→21:19)
[2019-02-17] MEDS: Potassium Chloride 20 MEQ TAB PO SCH (09:01)
[2019-02-17] MEDS: Lisinopril 20 MG TAB PO SCH (09:01)
[2019-02-17] MEDS: Nicotine 14 MG PATCH TD SCH (09:14)
--- NOTE | 2019-02-17 14:07 | PDOC.HOSPP ---
- Subjective Encounter Date: 02/17/19 Encounter Time: 14:06 Subjective: Ms. Ellington was seen today in follow-up of COPD exacerbation. She says she is breathing better today, and almost feels at her baseline. - Objective Vital Signs & Weight: Vital Signs (12 hours) Temp Pulse Resp BP BP Pulse Ox 02/17/19 12:27 82 114/76 02/17/19 12:00 98.4 F 77 18 122/75 99 02/17/19 09:01 82 114/76 02/17/19 08:59 82 02/17/19 07:30 98.0 F 82 16 145/79 H 100 02/17/19 04:00 98.1 F 83 20 117/67 98 Weight Admit Weight 199 lb 4.8 oz Weight 199 lb 4.8 oz Result Diagrams: 02/17/19 Unknown 02/17/19 Unknown Hospitalist ROS - Medication Medications: Active Medications Generic Name Dose Route Start Last Admin Trade Name Freq PRN Reason Stop Dose Admin Allopurinol 100 mg 02/17/19 09:00 02/17/19 13:15 Zyloprim PO Not Given DAILY LEN Atorvastatin Calcium 80 mg 02/16/19 21:00 02/16/19 21:13 Lipitor PO 80 mg HS LEN Administration Azithromycin 500 mg 02/17/19 09:00 02/17/19 08:59 Zithromax PO 500 mg DAILY LEN Administration Benzonatate 100 mg 02/16/19 09:24 02/17/19 12:27 Tessalon PO 100 mg Q6H PRN Administration Cough Enoxaparin Sodium 40 mg 02/17/19 09:00 02/17/19 09:00 Lovenox SC 40 mg 0900 LEN Administration Famotidine 20 mg 02/16/19 21:00 02/17/19 08:59 Pepcid PO 20 mg BID LEN Administration Furosemide 40 mg 02/16/19 21:00 02/17/19 08:59 Lasix PO 40 mg BID LEN Administration Hydralazine HCl 10 mg 02/16/19 13:00 02/17/19 12:27 Apresoline PO 10 mg QID LEN Administration Ceftriaxone Sodium 1 gm/ 100 mls @ 200 mls/hr 02/16/19 23:00 02/16/19 23:37 Sodium Chloride IVPB 100 mls Q24HR LEN Administration Levothyroxine Sodium 100 mcg 10/06/19 09:00 02/17/19 09:01 Synthroid PO 100 mcg DAILY LEN Administration Lisinopril 40 mg 02/17/19 09:00 02/17/19 09:01 Zestril PO Not Given DAILY LEN Methylprednisolone Sodium Succinate 40 mg 02/16/19 12:00 02/17/19 12:27 Solu-Medrol IVP 40 mg Q6HR LEN Administration Mometasone Furoate/Formoterol Fumar 1 puff 02/16/19 18:30 02/17/19 07:50 Dulera 100 Mcg/5 Mcg Inhaler INH 1 puff BID-RT LEN Administration Nebivolol 10 mg 02/17/19 09:00 02/17/19 08:59 Bystolic PO 10 mg DAILY LEN Administration Nicotine 14 mg 02/16/19 10:00 02/17/19 09:14 Nicoderm Patch TD 14 mg Q24HR LEN Administration Nifedipine 60 mg 02/17/19 09:00 02/17/19 08:59 Procardia Xl PO 60 mg DAILY LEN Administration Ondansetron HCl 4 mg 02/16/19 09:24 02/17/19 12:27 Zofran Odt PO 4 mg Q6H PRN Administration Nausea/Vomiting Potassium Chloride 20 meq 02/17/19 09:00 02/17/19 09:01 K-Dur PO 20 meq DAILY LEN Administration Sodium Chloride 10 ml 02/16/19 21:00 02/17/19 09:02 Flush - Normal Saline IVF 10 ml Q12HR LEN Administration Spironolactone 25 mg 02/17/19 08:00 02/17/19 08:58 Aldactone PO 25 mg QAM-WM LEN Administration - Exam Eye: PERRL, anicteric sclera Heart: RRR, no murmur, no gallops, no rubs, normal peripheral pulses Respiratory: CTAB (but with poor airmovement), no wheezes, no rales, no ronchi, normal chest expansion, no tachypnea, normal percussion Gastrointestinal: soft, non-tender, non-distended, normal bowel sounds, no hepatomegaly, no splenomegaly Extremities: no cyanosis, no clubbing, no edema Psychiatric: normal affect, normal behavior, A&O x 3 Hosp A/P (1) Acute and chronic respiratory failure Code(s): J96.20 - ACUTE AND CHR RESP FAILURE, UNSP W HYPOXIA OR HYPERCAPNIA Status: Acute (2) HTN (hypertension) Code(s): I10 - ESSENTIAL (PRIMARY) HYPERTENSION Status: Chronic (3) COPD exacerbation Code(s): J44.1 - CHRONIC OBSTRUCTIVE PULMONARY DISEASE W (ACUTE) EXACERBATION Status: Acute - Plan * Acute on chronic respiratory failure- improved * Will change steroids to p.o. * Continue Duonebs, Rocephin and Azithromycin * CAD- stable * Anticipate discharge home tomorrow
--- NOTE | 2019-02-17 16:15 | PRG ---
DATE OF SERVICE: 02/17/2019 SUBJECTIVE: Ms. Mcgee is doing well. She has no complaints. She states she feels better than yesterday. OBJECTIVE: VITAL SIGNS: She is afebrile, heart rate 77, blood pressure 114/76, respiratory rate is 18, oxygen saturation is 99% on nasal cannula. LUNGS: Clear. HEART: Regular rhythm. ABDOMEN: Soft and nontender. LABORATORY DATA: White count 8.2, hemoglobin 12.8, platelets 228. Electrolytes are normal. BUN 22, creatinine 1.12. Creatinine was 0.97 yesterday. IMPRESSION: 1. Chronic obstructive pulmonary disease exacerbation, improved. 2. ? parathyroid mass seen on CT. 3. History of coronary artery disease. given her clinical improvement, IV antimicrobial therapy can be discontinued. We would start her on prednisone. Job ID: [id number]
[2019-02-17] MEDS ORDERED: Saccharomyces boulardii 250 MG CAP PO SCH (18:00)
[2019-02-17] MEDS: Atorvastatin Calcium 40 MG TAB PO SCH (21:19)
[2019-02-17] MEDS: traMADol HCl 50 MG TAB PO PRN (21:19)
[2019-02-18] MEDS: Mometasone/Formoterol 120 PUFF INHALER INH SCH (06:30)
[2019-02-18] MEDS ORDERED: predniSONE 20 MG TAB PO SCH (08:00)
[2019-02-18] MEDS: Allopurinol 100 MG TAB PO SCH (09:01)
[2019-02-18] MEDS: Potassium Chloride 20 MEQ TAB PO SCH (09:01)
[2019-02-18] MEDS: NIFEdipine XL 60 MG TAB PO SCH (09:01)
[2019-02-18] MEDS: Furosemide 40 MG TAB PO SCH (09:01)
[2019-02-18] MEDS: Lisinopril 20 MG TAB PO SCH (09:02)
[2019-02-18] MEDS: Levothyroxine Sodium 100 MCG TAB PO SCH (09:02)
[2019-02-18] MEDS: hydrALAZINE 10 MG TAB PO SCH ×2 (09:03→15:16)
[2019-02-18] MEDS: Spironolactone 25 MG TAB PO SCH (09:03)
[2019-02-18] MEDS: traMADol HCl 50 MG TAB PO PRN (09:03)
[2019-02-18] MEDS: Azithromycin 250 MG TAB PO SCH (09:03)
[2019-02-18] MEDS: Famotidine 20 MG TAB PO SCH (09:03)
[2019-02-18] MEDS: Enoxaparin Sodium 40 MG/0.4 ML SYRINGE SC SCH (09:04)
[2019-02-18] MEDS: Nebivolol HCl 5 MG TAB PO SCH (09:09)
[2019-02-18] MEDS: Benzonatate 100 MG CAP PO PRN (09:09)
--- NOTE | 2019-02-18 10:29 | PDOC.HOSPP ---
- Subjective Encounter Date: 02/18/19 Encounter Time: 10:28 Subjective: Ms. Mcgee was seen today in follow-up of COPD exacerbation. She says she was breathing better. She denies any chest pain. - Objective Vital Signs & Weight: Vital Signs (12 hours) Temp Pulse Resp BP BP Pulse Ox 02/18/19 09:03 60 128/74 02/18/19 09:02 128/74 02/18/19 09:01 60 128/74 02/18/19 08:00 98.3 F 60 18 128/74 96 02/18/19 06:32 97 02/18/19 06:30 52 L 16 97 02/18/19 04:00 97.8 F 63 20 143/73 H 94 L Weight Admit Weight 199 lb 4.8 oz Weight 199 lb 4.8 oz I&O: 02/17/19 02/18/19 02/19/19 06:59 06:59 06:59 Intake Total 240 Balance 240 Result Diagrams: 02/17/19 Unknown 02/17/19 Unknown Hospitalist ROS - Medication Medications: Active Medications Generic Name Dose Route Start Last Admin Trade Name Freq PRN Reason Stop Dose Admin Allopurinol 100 mg 02/17/19 09:00 02/18/19 09:01 Zyloprim PO 100 mg DAILY LEN Administration Atorvastatin Calcium 80 mg 02/16/19 21:00 02/17/19 21:19 Lipitor PO 80 mg HS LEN Administration Azithromycin 500 mg 02/17/19 09:00 02/18/19 09:03 Zithromax PO 500 mg DAILY LEN Administration Benzonatate 100 mg 02/16/19 09:24 02/18/19 09:09 Tessalon PO 100 mg Q6H PRN Administration Cough Enoxaparin Sodium 40 mg 02/17/19 09:00 02/18/19 09:04 Lovenox SC 40 mg 0900 LEN Administration Famotidine 20 mg 02/16/19 21:00 02/18/19 09:03 Pepcid PO 20 mg BID LEN Administration Furosemide 40 mg 02/16/19 21:00 02/18/19 09:01 Lasix PO 40 mg BID LEN Administration Hydralazine HCl 10 mg 02/16/19 13:00 02/18/19 09:03 Apresoline PO 10 mg QID LEN Administration Levothyroxine Sodium 100 mcg 02/17/19 09:00 02/18/19 09:02 Synthroid PO 100 mcg DAILY LEN Administration Lisinopril 40 mg 02/17/19 09:00 02/18/19 09:02 Zestril PO 40 mg DAILY LEN Administration Mometasone Furoate/Formoterol Fumar 1 puff 02/16/19 18:30 02/18/19 06:30 Dulera 100 Mcg/5 Mcg Inhaler INH 1 puff BID-RT LEN Administration Nebivolol 10 mg 02/17/19 09:00 02/18/19 09:09 Bystolic PO 10 mg DAILY LEN Administration Nicotine 14 mg 02/16/19 10:00 02/17/19 09:14 Nicoderm Patch TD 14 mg Q24HR LEN Administration Nifedipine 60 mg 02/17/19 09:00 02/18/19 09:01 Procardia Xl PO 60 mg DAILY LEN Administration Ondansetron HCl 4 mg 02/16/19 09:24 02/17/19 12:27 Zofran Odt PO 4 mg Q6H PRN Administration Nausea/Vomiting Potassium Chloride 20 meq 02/17/19 09:00 02/18/19 09:01 K-Dur PO 20 meq DAILY LEN Administration Prednisone 40 mg 02/18/19 08:00 02/18/19 09:01 Prednisone PO 40 mg QAM-WM LEN Administration Saccharomyces Boulardii 250 mg 02/17/19 18:00 02/17/19 16:49 Florastor PO 250 mg 1800 LEN Administration Sodium Chloride 10 ml 02/16/19 21:00 02/18/19 09:04 Flush - Normal Saline IVF 10 ml Q12HR LEN Administration Spironolactone 25 mg 02/17/19 08:00 02/18/19 09:03 Aldactone PO 25 mg QAM-WM LEN Administration Tramadol HCl 50 mg 02/16/19 09:24 02/18/19 09:03 Ultram PO 50 mg Q6H PRN Administration pain - Exam Eye: PERRL, anicteric sclera Heart: RRR, no murmur, no gallops, no rubs, normal peripheral pulses Respiratory: CTAB, no wheezes, no rales, no ronchi, normal chest expansion Gastrointestinal: soft, non-tender, non-distended, normal bowel sounds, no palpable masses, no hepatomegaly, no splenomegaly Extremities: no cyanosis, no clubbing, no edema Hosp A/P (1) Acute and chronic respiratory failure Code(s): J96.20 - ACUTE AND CHR RESP FAILURE, UNSP W HYPOXIA OR HYPERCAPNIA Status: Acute (2) HTN (hypertension) Code(s): I10 - ESSENTIAL (PRIMARY) HYPERTENSION Status: Chronic (3) COPD exacerbation Code(s): J44.1 - CHRONIC OBSTRUCTIVE PULMONARY DISEASE W (ACUTE) EXACERBATION Status: Acute - Plan * Acute on chronic respiratory failure- improved * Stable for discharge home
[2019-02-18] MEDS: Nicotine 14 MG PATCH TD SCH (10:47)
[2019-02-18 12:33] VITALS: BP 107/59; TEMP 97.8
--- NOTE | 2019-02-18 13:03 | PRG ---
DATE OF SERVICE: 02/18/2019 SUBJECTIVE: The patient feels somewhat better and wants to go home. OBJECTIVE: VITAL SIGNS: Temperature is 98.3, pulse 60, blood pressure 128/74, O2 saturation 96% on 2 L. HEENT: Unremarkable. NECK: No adenopathy or JVD. LUNGS: Few expiratory wheezes. CARDIAC: S1 and S2. Regular. ABDOMEN: Soft. EXTREMITIES: No edema. ASSESSMENT: Chronic obstructive pulmonary disease with exacerbation. PLAN: She is probably stable to go home on oral antibiotics and oral steroids. Job ID: [id number]
== END 2019-02-18 16:42 | disposition home or self-care (01) | DRG 189 ==
LOC: ERS 21:11 → 2NO 02-16 02:00
PROVIDERS: ADMIT Hospitalist; ATTEND Hospitalist
DX: J96.21 Acute and chronic respiratory failure with hypoxia (principal); J44.1 Chronic obstructive pulmonary disease with (acute) exacerbation; I69.354 Hemiplegia and hemiparesis following cerebral infarction affecting left non-dominant side; I50.32 Chronic diastolic (congestive) heart failure; E78.5 Hyperlipidemia, unspecified; F17.210 Nicotine dependence, cigarettes, uncomplicated; E21.4 Other specified disorders of parathyroid gland; I11.0 Hypertensive heart disease with heart failure; E89.0 Postprocedural hypothyroidism; I25.10 Atherosclerotic heart disease of native coronary artery without angina pectoris; Z99.81 Dependence on supplemental oxygen; Z79.51 Long term (current) use of inhaled steroids; Z95.5 Presence of coronary angioplasty implant and graft; I25.2 Old myocardial infarction; Z90.710 Acquired absence of both cervix and uterus; Z79.899 Other long term (current) drug therapy; Z79.890 Hormone replacement therapy
CPT/HCPCS: 36415; 71275; 80048; 82553; 84484; 85025; 85379; 87804; 93005; 94640; 96365; 96375; J0696; J1650; J1940; J2920; J3490; J7512; J7620; Q0162; Q9967